=== PATIENT | female | born 1940 | race Caucasian/White ===

== ENCOUNTER 2017-02-04 10:04 | Day surgery (SDC) | payer MEDICARE, BC ==
[~2017-02-04] VITALS: Ht 162.6 cm; Wt 82.1 kg
[2017-02-04] VITALS (7 sets, daily range): BP systolic 114–145; BP diastolic 53–66; PULSE 53–61; RESP 16–25; TEMP 97.4–98; O2SAT 90–93; Ht 162.6 cm; Wt 82.1 kg
[~2017-02-04 10:04] MED LIST: AMLO5TAB66 PO; ASPI-558 PO; CITA-50 PO; MULT1CAP47 PO; ROSU10TA13 PO
--- OUTSIDE RECORDS SUMMARY | 2017-02-04 10:09 | XMS REPORT | Referral Summary ---
Author Author [facility] Organization [facility] Address Unknown Phone Unavailable Care Team Providers Care Flight Inspector Name Role Phone Preethi Dalal Primary Care Physician [phone] Encounter Date(s): 05/13/15 - 05/13/15 [facility] [address] [place] [id number] Discharge Diagnosis: Essential hypertension Discharge Diagnosis: Generalized OA Discharge Diagnosis: Depression Discharge Diagnosis: Coronary arteriosclerosis Discharge Diagnosis: Lower back pain Discharge Diagnosis: Pure hypercholesterolemia Discharge Disposition: 01-Home or Self Care Attending Physician: Jonathan Dalal MD Admitting Physician: Jonathan Dalal MD Vital Signs Most recent to 1 oldest [Reference Range]: Temperature Tympanic 36.2 degC [36.6-38.1 degC] *LOW* (05/13/15 9:54 AM) Peripheral Pulse 64 bpm Rate [60-100 bpm] (05/13/15 9:54 AM) Blood Pressure 176/80 mmHg [90-140/60-90 mmHg] *HI* (05/13/15 9:54 AM) Problem List Condition Effective Dates Status Health Status Informant angina(Confirmed) Resolved Angina(Confirmed) Resolved Blood clots in the Resolved lung(Confirmed) Blood Resolved transfusion(Confirme d) CAD (coronary artery Resolved disease)(Confirmed) Chicken Resolved pox(Confirmed) Cor athrscl-uns Resolved vessel(Confirmed) Coronary Active arteriosclerosis (disorder)(Confirmed ) Depression(Confirmed Resolved ) Depressive Resolved disorder(Confirmed) Essential Active hypertension (disorder)(Confirmed ) Hearing Resolved loss(Confirmed) High Resolved cholesterol(Confirme d) Hypercholesterolemia Resolved (Confirmed) Hypertension(Confirm Resolved ed) Obesity(Confirmed) Active patient Pure Active hypercholesterolemia (disorder)(Confirmed ) Allergies, Adverse Reactions, Alerts Substance Reaction Severity Status acetaminophen Active HYDROcodone Active lisinopril cough Active niacin rash Active Medications amLODIPine 5 mg oral tablet See Instructions, TAKE ONE TABLET BY MOUTH ONCE DAILY, # 90 tabs, 1 Refill(s), eRx: [facility], TAKE ONE TABLET BY MOUTH ONCE DAILY Start Date: 06/21/15 Status: Ordered chromium picolinate 500 mcg, Oral, Daily, 0 Refill(s) Start Date: 08/12/15 Status: Ordered cinnamon mg, Oral, BID, 0 Refill(s) Start Date: 08/12/15 Status: Ordered citalopram 40 mg oral tablet 1 tabs, Oral, Daily, # 90 tabs, 3 Refill(s), Pharmacy: [facility], 1 tabs Oral Daily Start Date: 11/09/14 Status: Ordered Crestor 20 mg oral tablet 1 tabs, Oral, Daily, fax [phone], # 90 tabs, 3 Refill(s) Start Date: 02/14/15 Status: Ordered losartan 100 mg oral tablet See Instructions, TAKE ONE TABLET BY MOUTH ONCE DAILY, # 90 tabs, 1 Refill(s), eRx: [facility], TAKE ONE TABLET BY MOUTH ONCE DAILY Start Date: 07/15/15 Status: Ordered LOSARTAN 100MG TAB See Instructions, TAKE ONE TABLET BY MOUTH EVERY DAY, # 90 tabs, 1 Refill(s), eRx: [facility], TAKE ONE TABLET BY MOUTH EVERY DAY Start Date: 01/10/15 Status: Ordered metoprolol tartrate 100 mg oral tablet 100 mg 1 tabs, Oral, BID, # 60 tabs, 6 Refill(s), Pharmacy: [facility] Start Date: 05/13/15 Status: Ordered multivitamin Daily, 0 Refill(s) Start Date: 07/20/14 Status: Ordered Vitamin D3 2000 intl units oral tablet Intl_Units tabs, Oral, Daily, 0 Refill(s) Start Date: 08/12/15 Status: Ordered Results Urinalysis Most recent to 1 oldest [Reference Range]: UA Color Lt Yellow (05/13/15 10:34 AM) UA Appear Clear (05/13/15 10:34 AM) UA pH [5.0-8.0] 7.0 (05/13/15 10:34 AM) UA Leuk Est Negative [Negative] (05/13/15 10:34 AM) UA Nitrite Negative [Negative] (05/13/15 10:34 AM) UA Protein Negative [Negative] (05/13/15 10:34 AM) UA Glucose Negative [Negative] (05/13/15 10:34 AM) UA Ketones Negative [Negative] (05/13/15 10:34 AM) UA Urobilinogen 0.2 mg/dL (05/13/15 10:34 AM) UA Bili [Negative] Negative (05/13/15 10:34 AM) UA Blood Negative (05/13/15 10:34 AM) UA Spec Grav 1.020 [1.003-1.030] (05/13/15 10:34 AM) Type Clean Catch (05/13/15 10:34 AM) Immunizations Vaccine Date Refusal Reason tetanus/diphth/pertuss (Tdap) adult/adol 11/22/09 influenza virus vaccine, inactivated 08/21/14 pneumococcal 13-valent conjugate vaccine 05/13/15 pneumococcal 23-polyvalent vaccine 11/22/12 Procedures Procedure Date Related Diagnosis Body Site Mammogram 10/10/14 Colonoscopy 05/21/11 Left cartoid Endarterectomy 09/01/10 Right Cartoid Endarterectomy 08/06/08 Mammogram 06/11/04 Cataract extraction; bilateral 11/22/99 Hysterectomy 11/22/97 Tubal ligation 11/22/79 Angioplasty Cardiac Bypass Social History Social History Type Response Smoking Status Former smoker; Type: Cigarettes Assessment and Plan Extracted from: Title: Ambulatory Patient Education Author: Jonathan Dalal MD Date: Family Medicine Hypertension Hypertension is another name for high blood pressure. High blood pressure may mean that your heart needs to work harder to pump blood. Blood pressure consists of two numbers, which includes a higher number over a lower number ( example: 110/72). HOME CARE Make lifestyle changes as told by your doctor. This may include weight loss and exercise. Take your blood pressure medicine every day. Limit how much salt you use. Stop smoking if you smoke. Do not use drugs. Talk to your doctor if you are using decongestants or control pills. These medicines might make blood pressure higher. Females should not drink more than 1 alcoholic drink per day. Males should not drink more than 2 alcoholic drinks per day. See your doctor as told. GET HELP RIGHT AWAY IF: You have a blood pressure reading with a top number of 180 or higher. You get a very bad headache. You get blurred or changing vision. You feel confused. You feel weak, numb, or faint. You get chest or belly (abdominal ) pain. You throw up (vomit ). You cannot breathe very well. MAKE SURE YOU: Understand these instructions. Will watch your condition. Will get help right away if you are not doing well or get worse. Document Released: 04/26/2009 Document Revised: 01/30/2013 Document Reviewed: Exit[employer] Patient Information 2014 [place]. No follow up information was provided. Extracted from: Title: Office Visit Note Author: Jonathan Dalal MD Date: 05/13/15 Assessment/Plan Coronary arteriosclerosis Overall appears stable no change in current treatment. Prevnar was recommended and given today. Ordered: pneumococcal 13-valent conjugate vaccine, 0.5 mL, IntraMuscular, Once, First Dose: 05/13/15 11:00:00 CDT, Stop Date: 05/13/15 11:00:00 CDT, Form: Injection Office Visit Level 4 Est 20932 Depression Stable no change in current treatment recommended. Ordered: Office Visit Level 4 Est 60709 Essential hypertension I'm going to discontinue her metoprolol succinate and begin metoprolol tartrate 100 mg twice a day. Continue other medications without change. Follow-up in 3 months. If her blood pressures at home are running high she'll let us know. She has difficulty getting this covered by insurance she'll let us know. Ordered: pneumococcal 13-valent conjugate vaccine, 0.5 mL, IntraMuscular, Once, First Dose: 05/13/15 11:00:00 CDT, Stop Date: 05/13/15 11:00:00 CDT, Form: Injection Office Visit Level 4 Est 30817 Generalized OA Overall stable may continue Celebrex as tolerated. Ordered: Office Visit Level 4 Est 67039 Lower back pain I think this is likely related to her osteoarthritis. We will check a UA today just to make sure there is no signs of infection or other kidney problems. Ordered: Office Visit Level 4 Est 90199 Urinalysis with Culture if Indicated Pure hypercholesterolemia Overall stable no change in current treatment. Follow-up in 3 months with fasting lab prior to that appointment. Ordered: Office Visit Level 4 Est 73328 Orders: metoprolol, 100 mg 1 tabs, Oral, BID, # 60 tabs, 6 Refill(s), Pharmacy : [facility]
--- OUTSIDE RECORDS SUMMARY | 2017-02-04 10:09 | XMS REPORT | Referral Summary ---
Author Author [facility] Organization [facility] Address Unknown Phone Unavailable Care Team Providers Care Mortician Supplies Sales Representative Name Role Phone Preethi Dalal Primary Care Physician [phone] Encounter [facility] [id number] Date(s): 10/09/15 - 10/09/15 [facility] [address] [place] [address] [place] [id number] Discharge Diagnosis: Hypercholesteremia Discharge Diagnosis: H/O coronary artery bypass surgery Discharge Diagnosis: Coronary heart disease Discharge Diagnosis: Essential hypertension Discharge Diagnosis: Hypertensive heart disease Discharge Diagnosis: Weakness Discharge Disposition: 01-Home or Self Care Attending Physician: Kd Dennison MD Admitting Physician: Kd Dennison MD Referring Physician: Jonathan Dalal MD Vital Signs Most recent to 1 oldest [Reference Range]: Peripheral Pulse 56 bpm Rate [60-100 bpm] *LOW* (10/09/15 11:22 AM) Blood Pressure 130/78 mmHg [90-140/60-90 mmHg] (10/09/15 11:22 AM) Problem List Condition Effective Dates Status [...] DAILY, # 90 tabs, 1 Refill(s), eRx: [facility], TAKE ONE TABLET BY MOUTH ONCE DAILY Start Date: 06/21/15 Status: Ordered aspirin 81 mg oral tablet 81 mg 1 tabs, Oral, Daily, 0 Refill(s) Start Date: 10/09/15 Status: Ordered citalopram 40 mg oral tablet 1 tabs, Oral, Daily, # 90 tabs, 3 Refill(s), Pharmacy: [facility], 1 tabs Oral Daily Start Date: 11/09/14 Status: Ordered Crestor 20 mg oral tablet 1 tabs, Oral, Daily, fax [phone], # 90 tabs, 3 Refill(s) Start Date: 02/14/15 Status: Ordered losartan 100 mg oral tablet See Instructions, TAKE ONE TABLET BY MOUTH ONCE DAILY, # 90 tabs, 1 Refill(s), eRx: [facility], TAKE ONE TABLET BY MOUTH ONCE DAILY Start Date: 07/15/15 Status: Ordered metoprolol tartrate 100 mg oral tablet 100 mg 1 tabs, Oral, BID, # 60 tabs, 6 Refill(s), Pharmacy: [facility] Start Date: 05/13/15 Status: Ordered multivitamin Daily, 0 Refill(s) Start Date: 07/20/14 Status: Ordered Vitamin D3 2000 intl units oral tablet Intl_Units tabs, Oral, Daily, 0 Refill(s) Start Date: 08/12/15 Status: Ordered Results No data available for this section Immunizations Vaccine Date Refusal Reason tetanus/diphth/pertuss (Tdap) [...] Cigarettes Assessment and Plan Extracted from: Title: Office Visit Note Author: Kd Dennison MD Date: 10/09/15 Assessment/Plan 1.Coronary heart disease Ordered: CBC w/ Differential Comprehensive Metabolic Panel Internal Referral to Neurology Lipid Panel 2.Essential hypertension Ordered: CBC w/ Differential Comprehensive Metabolic Panel Internal Referral to Neurology Lipid Panel 3.Hypertensive heart disease Ordered: CBC w/ Differential Comprehensive Metabolic Panel Internal Referral to Neurology Lipid Panel 4.Hypercholesteremia Ordered: CBC w/ Differential Comprehensive Metabolic Panel Internal Referral to Neurology Lipid Panel 5.Weakness Ordered: Creatine Kinase Internal Referral to Neurology Sedimentation Rate US Carotid Duplex Bilateral 6.H/O coronary artery bypass surgery Discussion: Clearly this lady is quite complex and has an extensive positive review of systems. In view of her falls and neurologic symptoms, we will refer to neurologyand we will orderacarotid ultrasound. In view of her symptoms of weakness andcholesterol medicine, we will order a CPK level. In view of her headaches, we will order a sedimentation rate. Overall,this lady is highly symptomaticand has marked limitationbut probably is about the same as she was a year ago. Time of visit about a half hour. Ordered: Internal Referral to Neurology Referrals to Other Providers falls; balance Referred by: Kd Dennison MD
--- OUTSIDE RECORDS SUMMARY | 2017-02-04 10:09 | XMS REPORT | Continuity of Care Document ---
Author Author [facility] Address [address] [place] [address] Phone Care Team Providers Care Sheet Pile Hammer Operator Name Role Phone Jonathan Dalal PP Unavailable Payers Payer name Insurance type Covered democrat ID Authorization(s) Unknown Problems Condition Effective Dates (start - stop) Clinical Status CAD, Unspecified - *Chronic Hypertension, Unspecified - *Chronic Hypercholesterolemia - *Chronic Depression - *Chronic CAD, Unspecified - Chronic Hypertension, Unspecified - Chronic Hypercholesterolemia - Chronic Depression - Chronic Contact dermatitis and other eczema, unspecified cause - * Chronic Upper Respiratory Infection, Acute - *Acute CAD, Unspecified - *Chronic Hypertension, Unspecified - *Chronic Hypercholesterolemia - *Chronic Depression - *Chronic Fatigue / Malaise - *Chronic Myalgia - *Chronic Dyspnea - *Chronic Cervicalgia - *Acute Cough - *Acute CAD, Unspecified - *Chronic Hypertension, Unspecified - *Chronic Hypercholesterolemia - *Chronic Depression - *Chronic CAD, Unspecified - Chronic Hypertension, Unspecified - Chronic Hypercholesterolemia - Chronic Depression - Chronic Contusion of head - *Acute Concussion - *Acute CAD, Unspecified - *Chronic Hypertension, Unspecified - *Chronic CAD, Unspecified - Chronic Hypertension, Unspecified - Chronic Bronchitis, Acute - *Acute CAD, Unspecified - *Chronic Hypercholesterolemia - *Chronic Depression - *Chronic Hypertension, Unspecified - *Chronic CAD, Unspecified - Chronic Hypercholesterolemia - Chronic Depression - Chronic Hypertension, Unspecified - Chronic Fatigue / Malaise - *Chronic CAD, Unspecified - *Chronic Hypertension, Unspecified - *Chronic Hypercholesterolemia - *Chronic Depression - *Chronic CAD, Unspecified - Chronic Hypertension, Unspecified - Chronic Hypercholesterolemia - Chronic Depression - Chronic Carotid bruit - *Chronic Malaise and fatigue - *Chronic CAD, Unspecified - *Chronic Hypercholesterolemia - *Chronic Hypertension, Unspecified - *Chronic BLOOD TRANSFUSION, NO DX - VARICELLA UNCOMPLICATED - PURE HYPERCHOLESTEROLEM - 311 - DEPRESSIVE DISORDER NEC - HEARING LOSS NOS - HYPERTENSION NOS - ANGINA PECTORIS NEC/NOS - COR ATH UNSP VSL NTV/GFT - PULM EMBOL/INFARCT NEC - VOCAL PARAL UNILAT TOTAL - Bronchitis, Acute - *Acute CAD, Unspecified - *Chronic Hypertension, Unspecified - *Chronic Hypercholesterolemia - *Chronic Depression - *Chronic Family History Family Member Diagnosis Age At Onset Status Unknown Social History Social History Element Description Quantity Unknown Allergies, Adverse Reactions, Alerts Substance Reaction Severity Status ATORVASTATIN CALCIUM muscle aches Unknown NIACIN rash Unknown ACETAMINOPHEN Unknown HYDROCODONE BITARTRATE Unknown LISINOPRIL cough Unknown Medications Medication Instructions Dosage Effective Dates (start - stop) Status triamcinolone acetonide 0.1 % topical cream apply by topical route 2 times every day a thin layer to the affected area(s) 0 - Active Aspirin Low Dose 81 mg tablet,delayed release take 1 tablet (81MG) by oral route every day 81 MG - Active Multiple Vitamins Daily tablet take 1 Tablet by Oral route every day 0 - Active Norvasc 5 mg tablet Take 1 tablet by mouth every day. - Active citalopram 20 mg tablet Take 1 by mouth every day. - Active losartan 100 mg tablet Take 1 by mouth every day. - Active omega 6-bbd-udz-fish oil 1,000 mg (120 mg-180 mg) capsule take 1 Capsule by Oral route every day 0 - Active Crestor 20 mg tablet take one tablet every other day - Active Immunizations Vaccine Date Status Comments Unknown Results Test Name Date and Time Measure Units Reference Range Abnormal Flag Comments Panel Description: Chemistry Profile Glucose 11:04:00 100 mg/dL 70-99 H BUN 11:04:00 22 mg/dL 10-20 H Creatinine 11:04:00 0.93 mg/dL 0.57-1.11 Calcium 11:04:00 9.8 mg/dL 8.9-10.5 Sodium 11:04:00 141 mEq/L 135-144 Potassium 11:04:00 4.2 mEq/L 3.5-5.2 Chloride 11:04:00 102 mEq/L 99-111 CO2 11:04:00 30 mEq/L 22-31 Albumin 11:04:00 4.4 g/dL 3.4-4.8 Bilirubin Total 11:04:00 0.8 mg/dL 0.2-1.2 Alkaline Phosphatase 11:04:00 66 U/L 40-150 Protein 11:04:00 7.4 g/dL 6.2-8.1 ALT (SGPT) 11:04:00 17 U/L 0-55 AST (SGOT) 11:04:00 18 U/L 5-34 Anion Gap 11:04:00 9 3-20 Globulin 11:04:00 3.0 g/dL 1.8-4.0 Testing performed at [facility] Reference Lab [facility] [address] [place] [address] Reference Librarian Mathew Tomlinson MD Panel Description: Lipid Profile-[facility] Cholesterol 11:04:00 319 mg/dL 0-199 H Triglycerides 11:04:00 174 mg/dL 0-149 H HDL Cholesterol 11:04:00 52 mg/dL 40-84 LDL Cholesterol 11:04:00 232 mg/dL 0-130 H VLDL Cholesterol 11:04:00 35 mg/dL 0-28 H Cardiac Risk 11:04:00 6.1 0.0-5.0 H Testing performed at [facility] Reference Lab [facility] [address] [place] [address] Reference Librarian Mathew Tomlinson MD Panel Description: Non-HDL Cholesterol-[facility] Non-HDL Cholesterol 11:04:00 267 mg/dL 0-159 H Testing performed at [facility] Reference Lab [address] [place] [address] Reference Librarian Mathew Tomlinson MD Panel Description: EGFR-[facility] eGFR 11:04:00 59 mL/min >60 A Multiply eGFR results by 1.21 for race.Testing performed at [facility] Reference Lab [address] [place] [address] Reference Librarian Mathew Tomlinson MD Vital Signs Date / Time: Height Weight Pulse Rate Blood Pressure Temperature /10:14:00 64.00 in 181.00 lbs 80 /min 138/84 mm[Hg] 96.9 F Procedures Procedure Date Unknown Encounters Encounter Location Date Patient Visit [facility] Patient Visit [facility] Patient Visit [facility] Patient Visit [facility] Patient Visit [facility] Patient Visit [facility] Patient Visit [facility] Patient Visit [facility] Patient [facility] Patient [facility] Patient Visit [facility] Patient Visit [facility] [place] Patient Visit [facility] Patient Visit [facility] Advance Directives Directive Effective Date Unknown
--- OUTSIDE RECORDS SUMMARY | 2017-02-04 10:10 | XMS REPORT | Summary of Care ---
Author Author Titi Nair, Festus Organization Unknown Address Unknown Phone Unavailable Care Team Providers Care Contribution Solicitor Name Role Phone Olya Campos DPM Unavailable Unavailable Festus Walls M.D. Unavailable Unavailable Jonathan Dalal Unavailable Unavailable Unavailable Unavailable Functional Status Name Dates Details Functional status health issues are not documented Status: Name Dates Details Cognitive status health issues are not documented Status: Problems Name Dates Details Foot pain (729.5, M79.673) Status: Active Allergic rhinitis (477.9, J30.9) Status: Active Post-nasal drip (784.91, R09.82) Status: Active Medications Name Dates Details Crestor 20 MG Oral Tablet TAKE 1 TABLET DAILY. Olya Campos DPM * Start Active Triamcinolone Acetonide 0.1 % External Ointment APPLY AND GENTLY MASSAGE INTO AFFECTED AREA(S) TWICE DAILY. * Quantity: 80 Refills: 0 Olya Campos DPM * Start Active Aspirin Adult Low Strength 81 MG Oral Tablet Chewable * Refills: 0 * Start 15-Sep-2016 Active AmLODIPine Besylate TABS * Refills: 0 * Start 15-Sep-2016 Active Fluticasone Propionate 50 MCG/ACT Nasal Suspension USE 2 SPRAYS IN EACH NOSTRIL ONCE DAILY * Quantity: 1 Refills: 3 Festus Walls M.D. * Start 15-Sep-2016 Active Allergies and Adverse Reactions Name Dates Details Lipitor (Allergy) Status: Active niacin (Allergy) Status: Active Procedures Procedure Dates Details Procedures not documented Immunization Name Dates Details Immunizations not documented Family History Name Dates Details Family history of hypertension (V17.49, Z82.49) Status: Active Family history of High cholesterol (272.0, E78.00) Status: Active Name Dates Details Family history of hypertension (V17.49, Z82.49) Status: Active Family history of cardiac disorder (V17.49, Z82.49) Status: Active Social History Name Dates Details - Status: Name Dates Details Former smoker Vital Signs Date Test Result Details 15-Sep-2016 13:16 Temperature 97.5 f Status: Comments: Method: Heart Rate 58 /min Status: Comments: Location: ; Physical Findings 21 Status: Comments: Respiration Height 65 in Status: Weight 168 lb Status: Physical Findings 92 Status: Comments: O2 Saturation Body Mass Index Calculated 27.96 kg/m2 Status: Body Surface Area Calculated 1.84 m2 Status: Results Date Description Value Details Results not documented Plan of Care Name Dates Details Planned Observations Planned Goals not documented Planned Encounters Appointment; Provider: Festus Walls M.D. On 17-Dec-2016 10:45 Interventions Provided Medication Changes* Fluticasone Propionate 50 MCG/ACT Nasal Suspension - Start Instructions Name Dates Details Instructions not documented Encounters Appointment; Festus Walls M.D. Encounter Diagnosis: Problem not documented On 08-Sep-2016 12:30
--- OUTSIDE RECORDS SUMMARY | 2017-02-04 10:10 | XMS REPORT | Referral Summary ---
Author Author [facility], [facility] Organization [facility] Address Unknown Phone Unavailable Care Team Providers Care Search Strategist Name Role Phone Preethi Dalal Primary Care Physician [phone] Encounter [facility] Date(s): 08/21/16 - 08/21/16 [facility] [address] [place] [address] Discharge Diagnosis: Coronary arteriosclerosis Discharge Diagnosis: Essential hypertension Discharge Diagnosis: Mixed hyperlipidemia Discharge Diagnosis: Hyperlipidemia Discharge Diagnosis: Hoarseness Discharge Disposition: 01-Home or Self Care Attending Physician: Jonathan Dalal MD Admitting Physician: Jonathan Dalal MD Vital Signs Most recent to 1 oldest [Reference Range]: Temperature Tympanic 36.2 degC [36.6-38.1 degC] *LOW* (08/21/16 8:56 AM) Peripheral Pulse 56 bpm Rate [60-100 bpm] *LOW* (08/21/16 8:56 AM) Respiratory Rate 16 br/min [14-20 br/min] (08/21/16 8:56 AM) Blood Pressure 152/74 mmHg [90-140/60-90 mmHg] *HI* (08/21/16 8:56 AM) Problem List Condition Effective Dates Status [...] Reaction Severity Status acetaminophen Active HYDROcodone Active Levaquin Swallowing difficulty Active 16-JUN-2016 16:37:42<$> lisinopril cough Active niacin rash Active Medications amLODIPine 5 mg oral tablet See Instructions, TAKE ONE TABLET BY MOUTH ONCE DAILY, # 90 tabs, 1 Refill(s), Pharmacy: [facility], TAKE ONE TABLET BY MOUTH ONCE DAILY Start Date: 12/30/15 Status: Ordered aspirin 81 mg oral tablet 81 mg 1 tabs, Oral, Daily, 0 Refill(s) Start Date: 10/09/15 Status: Ordered CITALOPRAM 40MG TAB See Instructions, TAKE ONE TABLET BY MOUTH ONCE DAILY, # 90 tabs, 1 Refill(s), eRx: [facility], TAKE ONE TABLET BY MOUTH ONCE DAILY Start Date: 05/11/16 Status: Ordered Crestor 20 mg oral tablet 20 mg 1 tabs, Oral, Daily, fax [phone], # 90 tabs, 2 Refill(s) Start Date: 02/24/16 Status: Ordered losartan 100 mg oral tablet See Instructions, TAKE ONE TABLET BY MOUTH ONCE DAILY, # 90 tabs, 2 Refill(s), eRx: [facility], TAKE ONE TABLET BY MOUTH ONCE DAILY Start Date: 07/03/16 Status: Ordered Metoprolol Tartrate 100 mg oral tablet See Instructions, TAKE ONE TABLET BY MOUTH TWICE DAILY, # 180 tabs, eRx: [facility], TAKE ONE TABLET BY MOUTH TWICE DAILY Start Date: 07/28/16 Status: Ordered multivitamin Daily, 0 Refill(s) Start Date: 07/20/14 Status: Ordered Probiotic Formula caps, Oral, Daily, 0 Refill(s) Start Date: 11/11/15 Status: Ordered Vitamin D3 2000 intl units oral tablet Intl_Units tabs, Oral, Daily, 0 Refill(s) Start Date: 08/12/15 Status: Ordered Results No data available for this section Immunizations Vaccine Date Refusal Reason tetanus/diphth/pertuss (Tdap) adult/adol 11/22/09 influenza virus vaccine, inactivated 08/21/16 influenza virus vaccine, inactivated 11/11/15 influenza virus vaccine, inactivated 08/21/14 pneumococcal 13-valent conjugate vaccine 6/22/15 pneumococcal 23-polyvalent vaccine 11/22/12 Procedures Procedure Date Related Diagnosis Body Site Mammogram 10/10/14 Colonoscopy 05/21/11 Left cartoid Endarterectomy 09/01/10 Right Cartoid Endarterectomy 08/06/08 Mammogram 06/11/04 Cataract extraction; bilateral 11/22/99 Hysterectomy 11/22/97 Tubal ligation 11/22/79 Angioplasty Cardiac Bypass Social History Social History Type Response Smoking Status Former smoker; Type: Cigarettes Assessment and Plan Extracted from: Title: Office Visit Note Author: Jonathan Dalal MD Date: 08/21/16 Assessment/Plan 1.Coronary arteriosclerosis Chronic stable no change in current treatment is recommended no signs of ischemia or angina. Follow-up in 3 months. Ordered: Office Visit Level 4 Est 99479 2.Essential hypertension Blood pressures well-controlled no change in current treatment is recommended. Previous laboratory studies reviewed. Follow-up in 3 monthswith fasting lab at that time. Ordered: Office Visit Level 4 Est 58773 3.Hyperlipidemia, Mixed hyperlipidemia She is due for fasting lab in 3 months we'll see what that shows continuedcurrent treatment without change for the time being. Ordered: Office Visit Level 4 Est 09222 4.Hoarseness I've recommended anENT consult for further evaluation Ordered: Office Visit Level 4 Est 48842
--- OUTSIDE RECORDS SUMMARY | 2017-02-04 10:10 | XMS REPORT | Referral Summary ---
Author Author [facility] Organization [facility] Address Unknown Phone Unavailable Care Team Providers Care Kindergarten Aide Name Role Phone Preethi Dalal Primary Care Physician [phone] Encounter [facility] [id number] Date(s): 02/20/16 - 02/20/16 [facility] [address] [place], [place] [address] Discharge Diagnosis: Chest pain Discharge Diagnosis: CAD (coronary artery disease) Discharge Diagnosis: Shoulder pain Discharge Diagnosis: Witnessed apneic spells Discharge Diagnosis: Essential hypertension Discharge Diagnosis: Snores Discharge Disposition: 01-Home or Self Care Attending Physician: Yvon King Admitting Physician: Yvon King Referring Physician: Jonathan Dalal MD Vital Signs Most recent to 1 oldest [Reference Range]: Peripheral Pulse 60 bpm Rate [60-100 bpm] (02/20/16 10:35 AM) Blood Pressure 136/80 mmHg [90-140/60-90 mmHg] (02/20/16 10:35 AM) Problem List Condition Effective Dates Status [...] DAILY, # 90 tabs, 1 Refill(s), Pharmacy: [facility], TAKE ONE TABLET BY MOUTH ONCE DAILY Start Date: 12/30/15 Status: Ordered aspirin 81 mg oral tablet 81 mg 1 tabs, Oral, Daily, 0 Refill(s) Start Date: 10/09/15 Status: Ordered CITALOPRAM 40MG TAB See Instructions, TAKE ONE TABLET BY MOUTH ONCE DAILY, # 90 tabs, 1 Refill(s), eRx: [facility], TAKE ONE TABLET BY MOUTH ONCE DAILY Start Date: 11/11/15 Status: Ordered Crestor 20 mg oral tablet 1 tabs, Oral, Daily, fax [phone], # 90 tabs, 3 Refill(s) Start Date: 02/14/15 Status: Ordered hydrALAZINE 25 mg oral tablet 25 mg 1 tabs, Oral, BID, # 60 tabs, 6 Refill(s), Pharmacy: [facility] , 1 tabs Oral BID Start Date: 02/20/16 Status: Ordered losartan 100 mg oral tablet See Instructions, TAKE ONE TABLET BY MOUTH ONCE DAILY, # 90 tabs, 1 Refill(s), eRx: [facility], TAKE ONE TABLET BY MOUTH ONCE DAILY Start Date: 02/03/16 Status: Ordered metoprolol tartrate 100 mg oral tablet 100 mg 1 tabs, Oral, BID, # 180 tabs, 1 Refill(s), Pharmacy: [facility] Start Date: 01/06/16 Stop Date: 07/04/16 Status: Ordered multivitamin Daily, 0 Refill(s) Start Date: 07/20/14 Status: Ordered Probiotic Formula caps, Oral, Daily, 0 Refill(s) Start Date: 11/11/15 Status: Ordered Vitamin D3 2000 intl units oral tablet Intl_Units tabs, Oral, Daily, 0 Refill(s) Start Date: 08/12/15 Status: Ordered Results Hematology Most recent to 1 oldest [Reference Range]: Sed Rate [0-23] 18 (02/20/16 12:05 PM) Immunizations Vaccine Date Refusal Reason tetanus/diphth/pertuss (Tdap) adult/adol 11/22/09 influenza virus vaccine, inactivated 11/11/15 influenza virus [...] Extracted from: Title: Office Visit Note Author: KingYvon cotto Willy LORA Date: 02/20/16 Assessment/Plan 1.Chest pain Pt was seen by Dr. Dennison today as well. EKG was also rev'd by Dr. Dennison. Advised it was unremarkable. Advised that pt has had sx of chest pains off and on for years. However, we should repeat stress test in near future to re-evaluate her vessels. See Praful Dennison as previously scheduled. Ordered: Office Visit Level 4 Est 81995 Request for Cardiovascular Stress Test Sedimentation Rate 2.CAD (coronary artery disease) Ordered: Office Visit Level 4 Est 13199 Request for Cardiovascular Stress Test 3.Essential hypertension Add Hydralazine 25mg BID to regimen. Ordered: Office Visit Level 4 Est 86200 4.Shoulder pain Check ESR Ordered: Office Visit Level 4 Est 48114 Sedimentation Rate 5.Snores Ordered: Office Visit Level 4 Est 40954 Oximetry - Nocturnal Study 6.Witnessed apneic spells overnight oxiemtry. Ordered: Oximetry - Nocturnal Study Orders: hydrALAZINE, 25 mg 1 tabs, Oral, BID, # 60 tabs, 6 Refill(s), Pharmacy : [facility], 1 tabs Oral BID
--- OUTSIDE RECORDS SUMMARY | 2017-02-04 10:10 | XMS REPORT | Referral Summary ---
Author Author [facility] Organization [facility] Address Unknown Phone Unavailable Care Team Providers Care Starter Mechanic Name Role Phone Preethi Dalal Primary Care Physician [phone] Encounter Date(s): 05/13/15 - 05/13/15 [facility] [address] [place] [id number] Discharge Diagnosis: Essential hypertension Discharge Diagnosis: [...] DAILY, # 90 tabs, 1 Refill(s), eRx: [facility], TAKE ONE TABLET BY MOUTH ONCE DAILY Start Date: 06/21/15 Status: Ordered chromium picolinate 500 mcg, Oral, Daily, 0 Refill(s) Start Date: 08/12/15 Status: Ordered cinnamon mg, Oral, BID, 0 Refill(s) Start Date: 08/12/15 Status: Ordered citalopram 40 mg oral tablet 1 tabs, Oral, Daily, # 90 tabs, 3 Refill(s), Pharmacy: [facility], 1 tabs Oral Daily Start Date: 11/09/14 Status: Ordered Crestor 20 mg oral tablet 1 tabs, Oral, Daily, fax [phone], # 90 tabs, 3 Refill(s) Start Date: 02/14/15 Status: Ordered losartan 100 mg oral tablet See Instructions, TAKE ONE TABLET BY MOUTH ONCE DAILY, # 90 tabs, 1 Refill(s), eRx: [facility], TAKE ONE TABLET BY MOUTH ONCE DAILY Start Date: 07/15/15 Status: Ordered LOSARTAN 100MG TAB See Instructions, TAKE ONE TABLET BY MOUTH EVERY DAY, # 90 tabs, 1 Refill(s), eRx: [facility], TAKE ONE TABLET BY MOUTH EVERY DAY Start Date: 01/10/15 Status: Ordered metoprolol tartrate 100 mg oral tablet 100 mg 1 tabs, Oral, BID, # 60 tabs, 6 Refill(s), Pharmacy: [facility] Start Date: 05/13/15 Status: Ordered multivitamin [...] 01/30/2013 Document Reviewed: [employer] Patient Information 2014 [employer]. No follow up information was provided. Extracted from: Title: Office Visit Note Author: Jonathan Dalal MD Date: 05/13/15 Assessment/Plan Coronary arteriosclerosis Overall appears stable no change in current treatment. Prevnar was recommended and given today. Ordered: pneumococcal 13-valent conjugate vaccine, 0.5 mL, IntraMuscular, Once, First Dose: 05/13/15 11:00:00 CDT, Stop Date: 05/13/15 11:00:00 CDT, Form: Injection Office Visit Level 4 Est 30550 Depression Stable no change in current treatment recommended. Ordered: Office Visit Level 4 Est 82767 Essential hypertension I'm going to discontinue her [...] Form: Injection Office Visit Level 4 Est 78526 Generalized OA Overall stable may continue Celebrex as tolerated. Ordered: Office Visit Level 4 Est 75842 Lower back pain I think this is likely related to her osteoarthritis. We will check a UA today just to make sure there is no signs of infection or other kidney problems. Ordered: Office Visit Level 4 Est 68999 Urinalysis with Culture if Indicated Pure hypercholesterolemia Overall stable no change in current treatment. Follow-up in 3 months with fasting lab prior to that appointment. Ordered: Office Visit Level 4 Est 79368 Orders: metoprolol, 100 mg 1 tabs, Oral, BID, # 60 tabs, 6 Refill(s), Pharmacy : [facility]
--- OUTSIDE RECORDS SUMMARY | 2017-02-04 10:10 | XMS REPORT | Referral Summary ---
Author Author [facility], [facility] Organization [facility] Address Unknown Phone Unavailable Care Team Providers Care Voice Coach Name Role Phone Preethi Dalal Primary Care Physician [phone] Encounter [facility] Date(s): 11/12/16 - 11/12/16 [facility] [address] [place] [address] Discharge Diagnosis: Essential hypertension Discharge Diagnosis: Polyosteoarthritis Discharge Diagnosis: Coronary arteriosclerosis Discharge Diagnosis: Pure hypercholesterolemia Discharge Diagnosis: Depression Discharge Disposition: 01-Home or Self Care Attending Physician: Jonathan Dalal MD Admitting Physician: Jonathan Dalal MD Vital Signs Most recent to 1 oldest [Reference Range]: Temperature Tympanic 36.5 degC [36.6-38.1 degC] *LOW* (11/12/16 8:23 AM) Peripheral Pulse 64 bpm Rate [60-100 bpm] (11/12/16 8:23 AM) Respiratory Rate 16 br/min [14-20 br/min] (11/12/16 8:23 AM) Blood Pressure 122/66 mmHg [90-140/60-90 mmHg] (11/12/16 8:23 AM) Problem List Condition Effective Dates Status Health Status Informant angina(Confirmed) Resolved Angina(Confirmed) Resolved Blood clots in the Resolved lung(Confirmed) Blood Resolved transfusion(Confirme d) CAD (coronary artery Resolved disease)(Confirmed) Chicken Resolved pox(Confirmed) Cor athrscl-uns Resolved vessel(Confirmed) Coronary Active arteriosclerosis (disorder)(Confirmed ) Depressive Resolved disorder(Confirmed) Essential Active hypertension (disorder)(Confirmed ) Hearing Resolved loss(Confirmed) High Resolved cholesterol(Confirme d) Hypercholesterolemia Resolved (Confirmed) Hypertension(Confirm Resolved ed) Obesity(Confirmed) Active patient Pure Active hypercholesterolemia (disorder)(Confirmed ) Depression(Confirmed Resolved ) Allergies, Adverse Reactions, Alerts Substance Reaction Severity Status acetaminophen Active HYDROcodone Active Levaquin Swallowing difficulty..... Active lisinopril cough Active niacin rash Active Medications amLODIPine 5 mg oral tablet See Instructions, TAKE ONE TABLET BY MOUTH ONCE DAILY, # 90 tabs, 1 Refill(s), eRx: [facility], TAKE ONE TABLET BY MOUTH ONCE DAILY Start Date: 09/18/16 Status: Ordered aspirin 81 mg oral tablet 81 mg 1 tabs, Oral, Daily, 0 Refill(s) Start Date: 10/09/15 Status: Ordered chlorthalidone 25 mg oral tablet 25 mg 1 tabs, Oral, Every other day, # 90 tabs, 5 Refill(s), Pharmacy: [place] [address], 1 tabs Oral Every other day Start Date: 10/14/16 Status: Ordered CITALOPRAM 40MG TAB See Instructions, TAKE ONE TABLET BY MOUTH ONCE DAILY, # 90 tabs, 1 Refill(s), eRx: [facility], TAKE ONE TABLET BY MOUTH ONCE DAILY Start Date: 05/11/16 Status: Ordered CITALOPRAM 40MG TAB See Instructions, TAKE ONE TABLET BY MOUTH ONCE DAILY, # 90 tabs, 1 Refill(s), eRx: [facility], TAKE ONE TABLET BY MOUTH ONCE DAILY Start Date: 11/03/16 Status: Ordered Crestor 20 mg oral tablet 20 mg 1 tabs, Oral, Daily, fax [phone], # 90 tabs, 2 Refill(s) Start Date: 02/24/16 Status: Ordered losartan 100 mg oral tablet See Instructions, TAKE ONE TABLET BY MOUTH ONCE DAILY, # 90 tabs, 2 Refill(s), eRx: [facility], TAKE ONE TABLET BY MOUTH ONCE DAILY Start Date: 07/03/16 Status: Ordered Metoprolol Tartrate 100 mg oral tablet See Instructions, TAKE ONE TABLET BY MOUTH TWICE DAILY, # 180 tabs, eRx: [facility], TAKE ONE TABLET BY MOUTH TWICE DAILY Start Date: 10/27/16 Status: Ordered multivitamin Daily, 0 Refill(s) Start Date: 07/20/14 Status: Ordered Probiotic Formula caps, Oral, Daily, 0 Refill(s) Start Date: 11/11/15 Status: Ordered Vitamin D3 2000 intl units oral tablet Intl_Units tabs, Oral, Daily, 0 Refill(s) Start Date: 08/12/15 Status: Ordered Results No data available for this section Immunizations Given and Recorded Vaccine Date Status Refusal Reason tetanus/diphth/pertuss (Tdap) adult/adol 11/22/09 Recorded influenza virus vaccine, inactivated 08/21/16 Given influenza virus vaccine, inactivated 11/11/15 Given influenza virus vaccine, inactivated 08/21/14 Recorded pneumococcal 13-valent conjugate vaccine 05/13/15 Given pneumococcal 23-polyvalent vaccine 11/22/12 Recorded Procedures Procedure Date Related Diagnosis Body Site Mammogram 10/10/14 Colonoscopy 05/21/11 Left cartoid Endarterectomy 09/01/10 Right Cartoid Endarterectomy 08/06/08 Mammogram 06/11/04 Cataract extraction; bilateral 11/22/99 Hysterectomy 11/22/97 Tubal ligation 11/22/79 Angioplasty Cardiac Bypass Social History Social History Type Response Smoking Status Former smoker; Type: Cigarettes Assessment and Plan Extracted from: Title: Office Visit Note Author: Jonathan Dalal MD Date: 11/12/16 Assessment/Plan 1.Coronary arteriosclerosis Chronic stable no signs of ischemia. No change in current treatment is recommended. Recheck in 3 months. Ordered: Office Visit Level 4 Est 66890 2.Essential hypertension Blood pressure appears to be well controlled. Current medications reviewed no changes are recommended. Recent laboratory studies reviewed and report card reviewed and provided. Follow-up in 3 months. Ordered: Office Visit Level 4 Est 18767 3.Pure hypercholesterolemia Recent laboratory studies reviewed in overall good. No change in current treatment is recommended. Ordered: Office Visit Level 4 Est 33218 4.Depression Chronic and stable on current treatment no changes recommended. Ordered: Office Visit Level 4 Est 26158 5.Polyosteoarthritis Chronic persistent but stable no change in current treatment recommended. Ordered: Office Visit Level 4 Est 14718 Vaccinations are up-to-date.
--- OUTSIDE RECORDS SUMMARY | 2017-02-04 10:10 | XMS REPORT | Referral Summary ---
Author Author [facility] Organization [facility] Address Unknown Phone Unavailable Care Team Providers Care Scratch Finisher Name Role Phone Preethi Dalal Primary Care Physician [phone] Encounter Date(s): 05/13/15 - 05/13/15 [facility] [address] [place] [address] Discharge Diagnosis: Essential hypertension Discharge [...] DAILY, # 90 tabs, 1 Refill(s), eRx: [facility], TAKE ONE TABLET BY MOUTH ONCE DAILY Start Date: 06/21/15 Status: Ordered aspirin 81 mg oral tablet 81 mg 1 tabs, Oral, Daily, 0 Refill(s) Start Date: 10/09/15 Status: Ordered CITALOPRAM 40MG TAB See Instructions, TAKE ONE TABLET BY MOUTH ONCE DAILY, # 90 tabs, 1 Refill(s), eRx: [facility], TAKE ONE TABLET BY MOUTH ONCE DAILY Start Date: 11/11/15 Status: Ordered Crestor 20 mg oral tablet 1 tabs, Oral, Daily, fax [phone], # 90 tabs, 3 Refill(s) Start Date: 02/14/15 Status: Ordered losartan 100 mg oral tablet See Instructions, TAKE ONE TABLET BY MOUTH ONCE DAILY, # 90 tabs, 1 Refill(s), eRx: [facility], TAKE ONE TABLET BY MOUTH ONCE DAILY Start Date: 07/15/15 Status: Ordered metoprolol tartrate 100 mg oral tablet 100 mg 1 tabs, Oral, BID, # 60 tabs, 6 Refill(s), Pharmacy: [facility] Start Date: 05/13/15 Status: Ordered multivitamin Daily, 0 Refill(s) Start Date: 07/20/14 Status: Ordered Probiotic Formula caps, Oral, Daily, 0 Refill(s) Start Date: 11/11/15 Status: Ordered VESIcare 5 mg oral tablet 5 mg 1 tabs, Oral, Daily, # 30 tabs, 0 Refill(s), samples given to patient (Rx) Start Date: 11/11/15 Status: Ordered Vitamin D3 [...] Released: 04/26/2009 Document Revised: 01/30/2013 Document Reviewed: [facility] Patient Information 2014 [employer]. No follow up information was provided. Extracted from: Title: Office Visit Note Author: Jonathan Dalal MD Date: 05/13/15 Assessment/Plan Coronary arteriosclerosis Overall appears stable no change in current treatment. Prevnar was recommended and given today. Ordered: pneumococcal 13-valent conjugate vaccine, 0.5 mL, IntraMuscular, Once, First Dose: 05/13/15 11:00:00 CDT, Stop Date: 05/13/15 11:00:00 CDT, Form: Injection Office Visit Level 4 Est 06393 Depression Stable no change in current treatment recommended. Ordered: Office Visit Level 4 Est 96678 Essential hypertension I'm going to discontinue her [...] Form: Injection Office Visit Level 4 Est 59803 Generalized OA Overall stable may continue Celebrex as tolerated. Ordered: Office Visit Level 4 Est 99650 Lower back pain I think this is likely related to her osteoarthritis. We will check a UA today just to make sure there is no signs of infection or other kidney problems. Ordered: Office Visit Level 4 Est 09883 Urinalysis with Culture if Indicated Pure hypercholesterolemia Overall stable no change in current treatment. Follow-up in 3 months with fasting lab prior to that appointment. Ordered: Office Visit Level 4 Est 89639 Orders: metoprolol, 100 mg 1 tabs, Oral, BID, # 60 tabs, 6 Refill(s), Pharmacy : [facility]
--- OUTSIDE RECORDS SUMMARY | 2017-02-04 10:10 | XMS REPORT | Referral Summary ---
Author Author [facility] Organization [facility] Address Unknown Phone Unavailable Care Team Providers Care Cloth Feeder Name Role Phone Preethi Dalal Primary Care Physician [phone] Encounter VC Date(s): 03/05/16 - 03/05/16 [facility] [address] [place] [address] Discharge Diagnosis: Essential hypertension Discharge Diagnosis: Acute bronchitis Discharge Diagnosis: Left otitis media Discharge Diagnosis: Coronary arteriosclerosis Discharge Disposition: 01-Home or Self Care Attending Physician: Jonathan Dalal MD Admitting Physician: Jonathan Dalal MD Vital Signs Most recent to 1 oldest [Reference Range]: Temperature Tympanic 36.5 degC [36.6-38.1 degC] *LOW* (03/05/16 10:11 AM) Peripheral Pulse 68 bpm Rate [60-100 bpm] (03/05/16 10:11 AM) Respiratory Rate 20 br/min [14-20 br/min] (03/05/16 10:11 AM) Blood Pressure 160/74 mmHg [90-140/60-90 mmHg] *HI* (03/05/16 10:11 AM) Problem List Condition Effective Dates Status [...] DAILY, # 90 tabs, 1 Refill(s), Pharmacy: [facility], TAKE ONE TABLET BY MOUTH ONCE DAILY Start Date: 12/30/15 Status: Ordered aspirin 81 mg oral tablet 81 mg 1 tabs, Oral, Daily, 0 Refill(s) Start Date: 10/09/15 Status: Ordered CITALOPRAM 40MG TAB See Instructions, TAKE ONE TABLET BY MOUTH ONCE DAILY, # 90 tabs, 1 Refill(s), eRx: [facility], TAKE ONE TABLET BY MOUTH ONCE DAILY Start Date: 11/11/15 Status: Ordered Crestor 20 mg oral tablet 20 mg 1 tabs, Oral, Daily, fax [phone], # 90 tabs, 2 Refill(s) Start Date: 02/24/16 Status: Ordered hydrALAZINE 25 mg oral tablet 25 mg 1 tabs, Oral, BID, # 60 tabs, 6 Refill(s), Pharmacy: [facility] , 1 tabs Oral BID Start Date: 02/20/16 Status: Ordered Levaquin 500 mg oral tablet 500 mg 1 tabs, Oral, q24hr, X 10 days, # 10 tabs, 0 Refill(s), Pharmacy: [facility], 1 tabs Oral q24hr,x10 days Start Date: 03/05/16 Stop Date: 03/15/16 Status: Ordered losartan 100 mg oral tablet See Instructions, TAKE ONE TABLET BY MOUTH ONCE DAILY, # 90 tabs, 1 Refill(s), eRx: [facility], TAKE ONE TABLET BY MOUTH ONCE DAILY Start Date: 02/03/16 Status: Ordered metoprolol tartrate 100 mg oral tablet 100 mg 1 tabs, Oral, BID, # 180 tabs, 1 Refill(s), Pharmacy: [facility] Start Date: 01/06/16 Stop Date: 07/04/16 Status: Ordered multivitamin Daily, 0 Refill(s) Start Date: 07/20/14 Status: Ordered Probiotic Formula caps, Oral, Daily, 0 Refill(s) Start Date: 11/11/15 Status: Ordered Tessalon Perles 100 mg oral capsule 100 mg 1 caps, Oral, TID, Cough, X 10 days, # 30 caps, 0 Refill(s), Pharmacy: [facility], 1 caps Oral TID,x10 days,PRN:Cough Start Date: 03/05/16 Stop Date: 03/15/16 Status: Ordered Vitamin D3 2000 intl units [...] Visit Note Author: Jonathan Dalal MD Date: 03/05/16 Assessment/Plan Acute bronchitis I've recommended Levaquin 500 mg daily for 10 days. If not improving over the next 4-5 days or further problems develop follow-up. Tessalon Perles as needed forcoughhave been prescribed as well. Ordered: Office Visit Level 4 Est 18039 Coronary arteriosclerosis This is chronic and stable. I do think she should probablycontact the cardiology office and let them know that she sick perhaps postpone thestress test for a couple of weeks until she is feeling better. Ordered: Office Visit Level 4 Est 46960 Essential hypertension Chronic stable no change in current treatment Ordered: Office Visit Level 4 Est 33011 Left otitis media Antibiotics as listed above. Again if not improving she will let me know. Ordered: Office Visit Level 4 Est 97841 Orders: benzonatate, 100 mg 1 caps, Oral, TID, Cough, X 10 days, # 30 caps, 0 Refill(s), Pharmacy: [facility], 1 caps Oral TID,x10 days,PRN:Cough levofloxacin, 500 mg 1 tabs, Oral, q24hr, X 10 days, # 10 tabs, 0 Refill(s), Pharmacy: [facility], 1 tabs Oral q24hr,x10 days
--- OUTSIDE RECORDS SUMMARY | 2017-02-04 10:10 | XMS REPORT | Referral Summary ---
Author Author [facility] Organization [facility] Address Unknown Phone Unavailable Care Team Providers Care Customer Business Manager Name Role Phone Preethi Dalal Primary Care Physician [phone] Encounter Date(s): 05/13/15 - 05/13/15 [facility] [address] [place] [address] Discharge Diagnosis: Essential hypertension Discharge Diagnosis: Generalized [...] DAILY, # 90 tabs, 1 Refill(s), eRx: [facility], TAKE ONE TABLET BY MOUTH ONCE DAILY Start Date: 06/21/15 Status: Ordered aspirin 81 mg oral tablet 81 mg 1 tabs, Oral, Daily, 0 Refill(s) Start Date: 10/09/15 Status: Ordered CITALOPRAM 40MG TAB See Instructions, TAKE ONE TABLET BY MOUTH ONCE DAILY, # 90 tabs, 1 Refill(s), eRx: [facility], TAKE ONE TABLET BY MOUTH ONCE DAILY Start Date: 11/11/15 Status: Ordered Crestor 20 mg oral tablet 1 tabs, Oral, Daily, fax [phone], # 90 tabs, 3 Refill(s) Start Date: 02/14/15 Status: Ordered losartan 100 mg oral tablet See Instructions, TAKE ONE TABLET BY MOUTH ONCE DAILY, # 90 tabs, 1 Refill(s), eRx: [facility], TAKE ONE TABLET BY MOUTH ONCE DAILY Start Date: 07/15/15 Status: Ordered metoprolol tartrate 100 mg oral tablet 100 mg 1 tabs, Oral, BID, # 60 tabs, 6 Refill(s), Pharmacy: [facility] Start Date: 05/13/15 Status: Ordered [...] Released: 04/26/2009 Document Revised: 01/30/2013 Document Reviewed: [facility] Patient Information 2014 [employer]. No follow up information was provided. Extracted from: Title: Office Visit Note Author: Jonathan Dalal MD Date: 05/13/15 Assessment/Plan Coronary arteriosclerosis Overall appears stable no change in current treatment. Prevnar was recommended and given today. Ordered: pneumococcal 13-valent conjugate vaccine, 0.5 mL, IntraMuscular, Once, First Dose: 05/13/15 11:00:00 CDT, Stop Date: 05/13/15 11:00:00 CDT, Form: Injection Office Visit Level 4 Est 55704 Depression Stable no change in current treatment recommended. Ordered: Office Visit Level 4 Est 23997 Essential hypertension I'm going to discontinue her [...] Form: Injection Office Visit Level 4 Est 33083 Generalized OA Overall stable may continue Celebrex as tolerated. Ordered: Office Visit Level 4 Est 83964 Lower back pain I think this is likely related to her osteoarthritis. We will check a UA today just to make sure there is no signs of infection or other kidney problems. Ordered: Office Visit Level 4 Est 83933 Urinalysis with Culture if Indicated Pure hypercholesterolemia Overall stable no change in current treatment. Follow-up in 3 months with fasting lab prior to that appointment. Ordered: Office Visit Level 4 Est 80602 Orders: metoprolol, 100 mg 1 tabs, Oral, BID, # 60 tabs, 6 Refill(s), Pharmacy : [facility]
--- OUTSIDE RECORDS SUMMARY | 2017-02-04 10:10 | XMS REPORT | Continuity of Care Document ---
Author Author [facility] Organization [facility] Address Unknown Phone Unavailable Allergies Medications Problems Procedures Results Encounters ACCT No. Visit Date/Time Discharge Status Pt. Type Provider Facility Loc./Unit Complaint [id number] 02/02/2014 10:44:00 02/02/2014 23 :59:59 CLS Outpatient [id number] 01/02/2014 10:09:00 01/02/2014 23 :59:59 CLS Outpatient
--- OUTSIDE RECORDS SUMMARY | 2017-02-04 10:10 | XMS REPORT | Referral Summary ---
Author Author [facility] Organization [facility] Address Unknown Phone Unavailable Care Team Providers Care Rehab Liaison Name Role Phone Preethi Dalal Primary Care Physician [phone] Encounter Date(s): 05/13/15 - 05/13/15 [facility] [address] [place] [id number] Discharge Diagnosis: Essential hypertension Discharge Diagnosis: [...] DAILY, # 90 tabs, 1 Refill(s), eRx: [facility], TAKE ONE TABLET BY MOUTH ONCE DAILY Start Date: 06/21/15 Status: Ordered chromium picolinate 500 mcg, Oral, Daily, 0 Refill(s) Start Date: 08/12/15 Status: Ordered cinnamon mg, Oral, BID, 0 Refill(s) Start Date: 08/12/15 Status: Ordered citalopram 40 mg oral tablet 1 tabs, Oral, Daily, # 90 tabs, 3 Refill(s), Pharmacy: [facility], 1 tabs Oral Daily Start Date: 11/09/14 Status: Ordered Crestor 20 mg oral tablet 1 tabs, Oral, Daily, fax [phone], # 90 tabs, 3 Refill(s) Start Date: 02/14/15 Status: Ordered losartan 100 mg oral tablet See Instructions, TAKE ONE TABLET BY MOUTH ONCE DAILY, # 90 tabs, 1 Refill(s), eRx: [facility], TAKE ONE TABLET BY MOUTH ONCE DAILY Start Date: 07/15/15 Status: Ordered LOSARTAN 100MG TAB See Instructions, TAKE ONE TABLET BY MOUTH EVERY DAY, # 90 tabs, 1 Refill(s), eRx: [facility], TAKE ONE TABLET BY MOUTH EVERY DAY Start Date: 01/10/15 Status: Ordered metoprolol tartrate 100 mg oral tablet 100 mg 1 tabs, Oral, BID, # 60 tabs, 6 Refill(s), Pharmacy: [facility] Start Date: 05/13/15 Status: Ordered multivitamin [...] 01/30/2013 Document Reviewed: [employer] Patient Information 2014 [employer]. No follow up information was provided. Extracted from: Title: Office Visit Note Author: Jonathan Dalal MD Date: 05/13/15 Assessment/Plan Coronary arteriosclerosis Overall appears stable no change in current treatment. Prevnar was recommended and given today. Ordered: pneumococcal 13-valent conjugate vaccine, 0.5 mL, IntraMuscular, Once, First Dose: 05/13/15 11:00:00 CDT, Stop Date: 05/13/15 11:00:00 CDT, Form: Injection Office Visit Level 4 Est 21200 Depression Stable no change in current treatment recommended. Ordered: Office Visit Level 4 Est 97452 Essential hypertension I'm going to discontinue her [...] Form: Injection Office Visit Level 4 Est 26340 Generalized OA Overall stable may continue Celebrex as tolerated. Ordered: Office Visit Level 4 Est 58855 Lower back pain I think this is likely related to her osteoarthritis. We will check a UA today just to make sure there is no signs of infection or other kidney problems. Ordered: Office Visit Level 4 Est 69189 Urinalysis with Culture if Indicated Pure hypercholesterolemia Overall stable no change in current treatment. Follow-up in 3 months with fasting lab prior to that appointment. Ordered: Office Visit Level 4 Est 31355 Orders: metoprolol, 100 mg 1 tabs, Oral, BID, # 60 tabs, 6 Refill(s), Pharmacy : [facility]
--- OUTSIDE RECORDS SUMMARY | 2017-02-04 10:10 | XMS REPORT | Summary of Care ---
Author Author Titi N[facility], [facility] Organization Unknown Address Unknown Phone Unavailable Care Team Providers Care Intake Nurse Name Role Phone Olya Campos DPM Unavailable Unavailable Festus Walls M.D. Unavailable Unavailable Jonathan Dalal Unavailable Unavailable Unavailable Unavailable Functional Status Name Dates Details Functional status health issues are not documented Status: Name Dates Details Cognitive status health issues are not documented Status: Problems Name Dates Details Foot pain (729.5, M79.673) Status: Active Post-nasal drip (784.91, R09.82) Status: Active Allergic rhinitis (477.9, J30.9) Status: Active Medications Name Dates Details Crestor [...] smoker Vital Signs Date Test Result Details 17-Dec-2016 10:13 Heart Rate 62 /min Status: Comments: Location: ; Physical Findings 95 Status: Comments: O2 Saturation Results Date Description Value Details Results not documented Plan of Care Name Dates Details Planned Observations Planned Goals not documented Instructions Name Dates Details Instructions not documented Encounters Appointment; Festus Walls M.D. Encounter Diagnosis: Problem not documented On 15-Sep-2016 13:30 Appointment; Festus Walls M.D. Encounter Diagnosis: Problem not documented On 08-Sep-2016 12:30
--- OUTSIDE RECORDS SUMMARY | 2017-02-04 10:10 | XMS REPORT | Referral Summary ---
Author Author [facility] Organization [facility] Address Unknown Phone Unavailable Care Team Providers Care Crane Rigger Name Role Phone Preethi Dalal Primary Care Physician [phone] Encounter Date(s): 11/11/15 - 11/11/15 [facility] [address] [place] [address] Discharge Diagnosis: Pure hypercholesterolemia Discharge Diagnosis: Essential hypertension Discharge Diagnosis: Coronary arteriosclerosis Discharge Diagnosis: Generalized OA Discharge Diagnosis: Hair loss Discharge Diagnosis: Chronic depression Discharge Disposition: 01-Home or Self Care Attending Physician: Jonathan Dalal MD Admitting Physician: Jonathan Dalal MD Vital Signs Most recent to 1 oldest [Reference Range]: Temperature Tympanic 36.3 degC [36.6-38.1 degC] *LOW* (11/11/15 9:53 AM) Peripheral Pulse 72 bpm Rate [60-100 bpm] (11/11/15 9:53 AM) Respiratory Rate 16 br/min [14-20 br/min] (11/11/15 9:53 AM) Blood Pressure 144/80 mmHg [90-140/60-90 mmHg] *HI* (11/11/15 9:53 AM) Problem List Condition Effective Dates Status [...] DAILY, # 90 tabs, 1 Refill(s), eRx: [facility], TAKE ONE TABLET BY MOUTH ONCE DAILY Start Date: 06/21/15 Status: Ordered aspirin 81 mg oral tablet 81 mg 1 tabs, Oral, Daily, 0 Refill(s) Start Date: 10/09/15 Status: Ordered CITALOPRAM 40MG TAB See Instructions, TAKE ONE TABLET BY MOUTH ONCE DAILY, # 90 tabs, 1 Refill(s), eRx: [facility], TAKE ONE TABLET BY MOUTH ONCE DAILY Start Date: 11/11/15 Status: Ordered Crestor 20 mg oral tablet 1 tabs, Oral, Daily, fax [phone], # 90 tabs, 3 Refill(s) Start Date: 02/14/15 Status: Ordered losartan 100 mg oral tablet See Instructions, TAKE ONE TABLET BY MOUTH ONCE DAILY, # 90 tabs, 1 Refill(s), eRx: [facility], TAKE ONE TABLET BY MOUTH ONCE DAILY Start Date: 07/15/15 Status: Ordered metoprolol tartrate 100 mg oral tablet 100 mg 1 tabs, Oral, BID, # 60 tabs, 6 Refill(s), Pharmacy: [facility]94 Start Date: 05/13/15 Status: Ordered multivitamin [...] Refill(s) Start Date: 08/12/15 Status: Ordered Results Chemistry Most recent to 1 oldest [Reference Range]: TSH with Reflex Free 2.06 T4 [0.35-4.94] (11/11/15 11:05 AM) Immunizations Vaccine Date Refusal Reason tetanus/diphth/pertuss [...] Visit Note Author: Jonathan Dalal MD Date: 11/11/15 Assessment/Plan Chronic depression Chronic stable no change in treatment. Some hair loss of recommended a TSH. Ordered: Office Visit Level 4 Est 58171 TSH with Reflex Free T4 Coronary arteriosclerosis Overall chronic and stable no signs of angina. Medications and treatments reviewed no changes are recommended. Recheck in 3 months. Ordered: Office Visit Level 4 Est 92474 Essential hypertension Blood pressure is fairly well controlled. Dictations reviewed report card reviewed and provided. Recent laboratory studies reviewed. Follow-up in 3 months. Ordered: Office Visit Level 4 Est 96291 Generalized OA Chronic stable no change in current treatment. Ordered: Office Visit Level 4 Est 28439 Hair loss I've recommended a TSH. If her loss continue she'll let us know. Ordered: TSH with Reflex Free T4 Pure hypercholesterolemia Chronic and stable. Recent laboratory studies reviewed. No changes are recommended. Follow-up in 6 months regarding lab. Orders: [facility] Medication, See Instructions, TAKE ONE TABLET BY MOUTH ONCE DAILY , # 90 tabs, 1 Refill(s), eRx: [facility], TAKE ONE TABLET BY MOUTH ONCE DAILY solifenacin, 5 mg 1 tabs, Oral, Daily, # 30 tabs, 0 Refill(s), samples given to patient (Rx) Addendum She has some symptoms of irritable bladder. I gave her some samples of Vesicare 5 mg by daily to try. She'll let us know if those are helpful.. Jonathan Dalal MD on November 11, 2015 11:00:12 REAGENT TENDER HELPER
--- OUTSIDE RECORDS SUMMARY | 2017-02-04 10:10 | XMS REPORT | Referral Summary ---
Author Author [facility] Organization [facility] Address Unknown Phone Unavailable Care Team Providers Care Signal Mechanic Name Role Phone Preethi Dalal Primary Care Physician [phone] Encounter Date(s): 05/13/15 - 05/13/15 [facility] [address] [place] [address] Discharge Diagnosis: Essential hypertension Discharge [...] DAILY, # 90 tabs, 1 Refill(s), eRx: [facility], TAKE ONE TABLET BY MOUTH ONCE DAILY Start Date: 06/21/15 Status: Ordered aspirin 81 mg oral tablet 81 mg 1 tabs, Oral, Daily, 0 Refill(s) Start Date: 10/09/15 Status: Ordered CITALOPRAM 40MG TAB See Instructions, TAKE ONE TABLET BY MOUTH ONCE DAILY, # 90 tabs, 1 Refill(s), eRx: [facility], TAKE ONE TABLET BY MOUTH ONCE DAILY Start Date: 11/11/15 Status: Ordered Crestor 20 mg oral tablet 1 tabs, Oral, Daily, fax [phone], # 90 tabs, 3 Refill(s) Start Date: 02/14/15 Status: Ordered losartan 100 mg oral tablet See Instructions, TAKE ONE TABLET BY MOUTH ONCE DAILY, # 90 tabs, 1 Refill(s), eRx: [facility], TAKE ONE TABLET BY MOUTH ONCE DAILY Start Date: 07/15/15 Status: Ordered metoprolol tartrate 100 mg oral tablet 100 mg 1 tabs, Oral, BID, # 60 tabs, 6 Refill(s), Pharmacy: [facility] Start Date: 05/13/15 Status: [...] Released: 04/26/2009 Document Revised: 01/30/2013 Document Reviewed: [facility] Patient Information 2014 [employer]. No follow up information was provided. Extracted from: Title: Office Visit Note Author: Jonathan Dalal MD Date: 05/13/15 Assessment/Plan Coronary arteriosclerosis Overall appears stable no change in current treatment. Prevnar was recommended and given today. Ordered: pneumococcal 13-valent conjugate vaccine, 0.5 mL, IntraMuscular, Once, First Dose: 05/13/15 11:00:00 CDT, Stop Date: 05/13/15 11:00:00 CDT, Form: Injection Office Visit Level 4 Est 58835 Depression Stable no change in current treatment recommended. Ordered: Office Visit Level 4 Est 97369 Essential hypertension I'm going to discontinue her [...] Form: Injection Office Visit Level 4 Est 69747 Generalized OA Overall stable may continue Celebrex as tolerated. Ordered: Office Visit Level 4 Est 45538 Lower back pain I think this is likely related to her osteoarthritis. We will check a UA today just to make sure there is no signs of infection or other kidney problems. Ordered: Office Visit Level 4 Est 16732 Urinalysis with Culture if Indicated Pure hypercholesterolemia Overall stable no change in current treatment. Follow-up in 3 months with fasting lab prior to that appointment. Ordered: Office Visit Level 4 Est 03184 Orders: metoprolol, 100 mg 1 tabs, Oral, BID, # 60 tabs, 6 Refill(s), Pharmacy : [facility]
--- OUTSIDE RECORDS SUMMARY | 2017-02-04 10:11 | XMS REPORT | Referral Summary ---
Author Author [facility], [facility] Organization [facility] Address Unknown Phone Unavailable Care Team Providers Care Ems Director Name Role Phone Preethi Dalal Primary Care Physician [phone] Encounter Date(s): 08/12/15 - 08/12/15 [facility] [address] [place] [address] Discharge Diagnosis: Essential hypertension Discharge Diagnosis: Depression Discharge Diagnosis: Coronary arteriosclerosis Discharge Diagnosis: Pure hypercholesterolemia Discharge Diagnosis: Generalized OA Discharge Disposition: 01-Home or Self Care Attending Physician: Jonathan Dalal MD Admitting Physician: Jonathan Dalal MD Vital Signs Most recent to 1 oldest [Reference Range]: Peripheral Pulse 72 bpm Rate [60-100 bpm] (08/12/15 10:16 AM) Respiratory Rate 16 br/min [14-20 br/min] (08/12/15 10:16 AM) Blood Pressure 140/90 mmHg [90-140/60-90 mmHg] (08/12/15 10:16 AM) Problem List Condition Effective Dates Status [...] DAILY, # 90 tabs, 1 Refill(s), Pharmacy: [facility], TAKE ONE TABLET BY MOUTH ONCE DAILY Start Date: 12/30/15 Status: Ordered aspirin 81 mg oral tablet 81 mg 1 tabs, Oral, Daily, 0 Refill(s) Start Date: 10/09/15 Status: Ordered CITALOPRAM 40MG TAB See Instructions, TAKE ONE TABLET BY MOUTH ONCE DAILY, # 90 tabs, 1 Refill(s), eRx: [facility], TAKE ONE TABLET BY MOUTH ONCE DAILY Start Date: 11/11/15 Status: Ordered Crestor 20 mg oral tablet 1 tabs, Oral, Daily, fax [phone], # 90 tabs, 3 Refill(s) Start Date: 02/14/15 Status: Ordered hydrALAZINE 25 mg oral tablet 25 mg 1 tabs, Oral, BID, # 60 tabs, 6 Refill(s), Pharmacy: [facility] , 1 tabs Oral BID Start Date: 02/20/16 Status: Ordered losartan 100 mg oral tablet See Instructions, TAKE ONE TABLET BY MOUTH ONCE DAILY, # 90 tabs, 1 Refill(s), eRx: [facility], TAKE ONE TABLET BY MOUTH ONCE DAILY Start Date: 02/03/16 Status: Ordered metoprolol tartrate 100 mg oral tablet 100 mg 1 tabs, Oral, BID, # 180 tabs, 1 Refill(s), Pharmacy: [facility] Start Date: 01/06/16 Stop Date: [...] Visit Note Author: Jonathan Dalal MD Date: 08/12/15 Assessment/Plan Coronary arteriosclerosis Chronic stable no signs of ischemia. Medications reviewed no changes recommended. Follow-up in 3 months. Ordered: Office Visit Level 4 Est 95219 Depression Overall stable on current dose of citalopram no changes recommended. Ordered: Office Visit Level 4 Est 21313 Essential hypertension Blood pressure is borderline. Medications reviewed no changes recommended. Report card reviewed and provided. Laboratory studies reviewed. Follow-up in 3 months. Ordered: Office Visit Level 4 Est 63406 Generalized OA Chronic stable no change in current treatment may continue to use Tylenol as needed. Ordered: Office Visit Level 4 Est 60759 Pure hypercholesterolemia Recent laboratory studies reviewed no changes are recommended at this time. Ordered: Office Visit Level 4 Est 03592
--- OUTSIDE RECORDS SUMMARY | 2017-02-04 10:11 | XMS REPORT | Referral Summary ---
Author Author [facility] Organization [facility] Address Unknown Phone Unavailable Care Team Providers Care Stack Attendant Name Role Phone Preethi Dalal Primary Care Physician [phone] Encounter Date(s): 04/01/16 - 04/01/16 [facility] [address] [place], [place] [address] Discharge Disposition: 01-Home or Self Care Attending Physician: Catina Vegas MD Admitting Physician: Catina Vegas MD Referring Physician: Jonathan Dalal MD Vital Signs No data available for this section Problem List Condition Effective Dates Status Health [...] DAILY, # 90 tabs, 1 Refill(s), [facility], TAKE ONE TABLET BY MOUTH ONCE DAILY Start Date: 12/30/15 Status: Ordered aspirin 81 mg oral tablet 81 mg 1 tabs, Oral, Daily, 0 Refill(s) Start Date: 10/09/15 Status: Ordered CITALOPRAM 40MG TAB See Instructions, TAKE ONE TABLET BY MOUTH ONCE DAILY, # 90 tabs, 1 Refill(s), eRx: [facility], TAKE ONE TABLET BY MOUTH ONCE DAILY Start Date: 11/11/15 Status: Ordered Crestor 20 mg oral tablet 20 mg 1 tabs, Oral, Daily, fax [phone], # 90 tabs, 2 Refill(s) Start Date: 02/24/16 Status: Ordered hydrALAZINE 25 mg oral tablet 25 mg 1 tabs, Oral, BID, # 60 tabs, 6 Refill(s), Pharmacy: [facility] , 1 tabs Oral BID Start Date: 02/20/16 Status: Ordered losartan 100 mg oral tablet See Instructions, TAKE ONE TABLET BY MOUTH ONCE DAILY, # 90 tabs, 1 Refill(s), eRx: [facility], TAKE ONE TABLET BY MOUTH ONCE DAILY Start Date: 02/03/16 Status: Ordered metoprolol tartrate 100 mg oral tablet 100 mg 1 tabs, Oral, BID, # 180 tabs, 1 Refill(s), Pharmacy: [facility] Start Date: 01/06/16 Stop Date: [...] Former smoker; Type: Cigarettes Assessment and Plan No data available for this section
--- OUTSIDE RECORDS SUMMARY | 2017-02-04 10:11 | XMS REPORT | Continuity of Care Document ---
Author Author [facility] Address Unknown Phone Unavailable Care Team Providers Care Die Out Worker Name Role Phone Jonathan Dalal PP Unavailable Payers Payer name Insurance type Covered libertarian ID Authorization(s) Unknown Problems Condition Effective Dates (start - stop) Clinical Status CAD, Unspecified - *Chronic Hypertension, Unspecified - *Chronic Hypercholesterolemia - *Chronic Depression - *Chronic Fatigue / Malaise - *Chronic Myalgia - *Chronic Dyspnea - *Chronic Upper Respiratory Infection, Acute - *Acute CAD, Unspecified - *Chronic Hypertension, Unspecified - *Chronic Hypercholesterolemia - *Chronic Depression - *Chronic CAD, Unspecified - Chronic Hypertension, Unspecified - Chronic Hypercholesterolemia - Chronic Depression - Chronic Contact dermatitis and other eczema, unspecified cause - * Chronic Cervicalgia - *Acute Cough - *Acute CAD, [...] Dosage Effective Dates (start - stop) Status omega 4-ion-srg-fish oil 1,000 mg (120 mg-180 mg) capsule take 1 Capsule by Oral route every day 0 - Active Crestor 10 mg tablet take 1 tablet (10MG) by oral route every day 10 MG - No Longer Active Aspirin Low Dose 81 mg tablet,delayed release take 1 tablet (81MG) by oral route every day 81 MG - Active Multiple Vitamins Daily tablet take 1 Tablet by Oral route every day 0 - Active Norvasc 5 mg tablet Take 1 tablet by mouth every day. - Active citalopram 20 mg tablet Take 1 by mouth every day. - Active triamcinolone acetonide 0.1 % topical cream apply by topical route 2 times every day a thin layer to the affected area(s) 0 - Active losartan 100 mg tablet Take 1 by mouth every day. - Active Crestor 20 mg tablet take one tablet every other day - Active Immunizations Vaccine Date Status Comments Unknown Results Test Name Date and Time Measure Units Reference Range Abnormal Flag Comments Panel Description: Sedrate Sedimentation Rate 12:18:00 31 mm/hr 0-23 H Testing performed at [facility] Reference Lab [address] [place] [address] Test Architect Mathew Tomlinson MD Panel Description: QCY-Vkdgtzj-GML CRP High Sensitivity 12:18:00 5.99 0.00-0.90 H Relative risk of future cardiac event:Low: <1 mg/LIntermediate: 1 - 3 mg/ LHigh: >3 mg/LCaution:High Sensitive CRP values greater than 3 mg/ Lindicate an acute inflammation. Patients shouldbe advised to have a repeat measurement in 2-3weeks or after the infection is resolved.Testing performed at [facility] Reference Lab [address] [place] [address] Test Architect Mathew Tomlinson MD Panel Description: TSH-[facility] TSH 12:18:00 2.72 uIU/mL 0.35-4.94 Testing performed at [facility] Reference Lab [facility] [address] [place] [address] Test Architect Mathew Tomlinson MD Panel Description: CK Creatine Kinase (CPK) 12:18:00 55 U/L 29-168 Testing performed at [facility] Reference Lab [address] [facility] [address] Test Architect Mathew Tomlinson MD Panel Description: LDL Direct Measurement-[facility] LDL Direct 12:18:00 96 mg/dL 0-129 Testing performed at [facility] Reference Lab [address] [facility] [address] Test Architect Mathew Tomlinson MD Vital Signs Date / Time: Height Weight Pulse Rate Blood Pressure Temperature 11:11:00 64.00 in 179.00 lbs 80 /min 156/90 mm[Hg] /11:13:00 150/90 mm[Hg] Procedures Procedure Date Unknown Encounters Encounter Location Date Patient Visit [facility] Patient Visit [facility] Patient Visit [facility] Patient Visit [facility] Patient Visit [facility] Patient Visit [facility] Patient [facility] Patient Visit [facility] Patient Visit [facility] Patient Visit [facility] Patient Visit [facility] Patient Visit [facility] Card Patient Visit Conversion Patient Visit [facility] Advance Directives Directive Effective Date Unknown
--- OUTSIDE RECORDS SUMMARY | 2017-02-04 10:11 | XMS REPORT | Referral Summary ---
Author Author [facility] Organization [facility] Address Unknown Phone Unavailable Care Team Providers Care Director Of Occupational Therapy Name Role Phone Preethi Dalal Primary Care Physician [phone] Encounter VC Date(s): 04/01/16 - 04/01/16 [facility] [address] [place], [place] [address] Discharge Disposition: 01-Home or Self Care Attending Physician: Frank Espinal MD Admitting Physician: Frank Espinal MD Referring Physician: Jonathan Dalal MD Vital Signs Most recent to 1 oldest [Reference Range]: Apical Heart Rate 63 bpm [60-100 bpm] (04/01/16 10:46 AM) Blood Pressure 198/85 mmHg [90-140/60-90 mmHg] *HI* (04/01/16 10:46 AM) Problem List Condition Effective Dates Status [...] DAILY, # 90 tabs, 1 Refill(s), Pharmacy: [facility], TAKE ONE TABLET BY MOUTH ONCE DAILY Start Date: 12/30/15 Status: Ordered aspirin 81 mg oral tablet 81 mg 1 tabs, Oral, Daily, 0 Refill(s) Start Date: 10/09/15 Status: Ordered CITALOPRAM 40MG TAB See Instructions, TAKE ONE TABLET BY MOUTH ONCE DAILY, # 90 tabs, 1 Refill(s), eRx: [facility], TAKE ONE TABLET BY MOUTH ONCE DAILY Start Date: 11/11/15 Status: Ordered Crestor 20 mg oral tablet 20 mg 1 tabs, Oral, Daily, fax [phone], # 90 tabs, 2 Refill(s) Start Date: 02/24/16 Status: Ordered hydrALAZINE 25 mg oral tablet 25 mg 1 tabs, Oral, BID, # 60 tabs, 6 Refill(s), Pharmacy: [facility] , 1 tabs Oral BID Start Date: 02/20/16 Status: Ordered losartan 100 mg oral tablet See Instructions, TAKE ONE TABLET BY MOUTH ONCE DAILY, # 90 tabs, 1 Refill(s), eRx: [facility], TAKE ONE TABLET BY MOUTH ONCE DAILY Start Date: 02/03/16 Status: Ordered metoprolol tartrate 100 mg oral tablet 100 mg 1 tabs, Oral, BID, # 180 tabs, 1 Refill(s), Pharmacy: [facility] Start Date: 01/06/16 Stop Date: [...]
--- OUTSIDE RECORDS SUMMARY | 2017-02-04 10:11 | XMS REPORT | Referral Summary ---
Author Author [facility] Organization [facility] Address Unknown Phone Unavailable Care Team Providers Care Layout Former Name Role Phone Preethi Dalal Primary Care Physician [phone] Encounter VC Date(s): 05/03/15 - 05/03/15 [facility] [address] [place] [address] Discharge Diagnosis: Generalized OA Discharge Diagnosis: Essential hypertension Discharge Diagnosis: Coronary arteriosclerosis Discharge Diagnosis: Pure hypercholesterolemia Discharge Disposition: 01-Home or Self Care Attending Physician: Jonathan Dalal MD Admitting Physician: Jonathan Dalal MD Vital Signs Most recent to 1 oldest [Reference Range]: Temperature Tympanic 36.8 degC [36.6-38.1 degC] (05/03/15 1:23 PM) Peripheral Pulse 72 bpm Rate [60-100 bpm] (05/03/15 1:23 PM) Respiratory Rate 20 br/min [14-20 br/min] (05/03/15 1:23 PM) Blood Pressure 128/72 mmHg [90-140/60-90 mmHg] (05/03/15 1:23 PM) Problem List Condition Effective Dates Status Health [...] DAILY, # 90 tabs, 1 Refill(s), eRx: [facility], TAKE ONE TABLET BY MOUTH ONCE DAILY Start Date: 06/21/15 Status: Ordered aspirin 81 mg oral tablet 81 mg 1 tabs, Oral, Daily, 0 Refill(s) Start Date: 10/09/15 Status: Ordered CITALOPRAM 40MG TAB See Instructions, TAKE ONE TABLET BY MOUTH ONCE DAILY, # 90 tabs, 1 Refill(s), eRx: [facility], TAKE ONE TABLET BY MOUTH ONCE DAILY Start Date: 11/11/15 Status: Ordered Crestor 20 mg oral tablet 1 tabs, Oral, Daily, fax [phone], # 90 tabs, 3 Refill(s) Start Date: 02/14/15 Status: Ordered losartan 100 mg oral tablet See Instructions, TAKE ONE TABLET BY MOUTH ONCE DAILY, # 90 tabs, 1 Refill(s), eRx: [facility], TAKE ONE TABLET BY MOUTH ONCE DAILY Start Date: 07/15/15 Status: Ordered metoprolol tartrate 100 mg oral tablet 100 mg 1 tabs, Oral, BID, # 60 tabs, 6 Refill(s), Pharmacy: [facility] Start Date: 05/13/15 Status: Ordered [...] Visit Note Author: Jonathan Dalal MD Date: 05/03/15 Assessment/Plan Coronary arteriosclerosis Overall appears stable no signs of ischemia. Continue current treatment. Ordered: Office Visit Level 4 Est 68857 Essential hypertension Blood pressure looks good here today but has been running high at home. I've asked her to bring her cuff in and have it checked against our readings. And then go ahead and increase her metoprolol from 50 mg daily to 50 mg twice a day recheck in a month she has problems or concerns before then she'll let us know. Ordered: Office Visit Level 4 Est 32035 Generalized OA I will allow her to use her Celebrex as needed at home. Warned this could have a impact on her blood pressure. Ordered: Office Visit Level 4 Est 41344 Pure hypercholesterolemia Stable no change in current treatment. Keep routine follow up as previously recommended. Ordered: Office Visit Level 4 Est 61083 Orders: metoprolol, 50 mg 1 tabs, Oral, BID, # 180 tabs, 3 Refill(s), Pharmacy : [facility]
--- OUTSIDE RECORDS SUMMARY | 2017-02-04 10:11 | XMS REPORT | Summary of Care ---
Author Author T[facility], [facility] Organization Unknown Address Unknown Phone Unavailable Care Team Providers Care Retail Store Manager Name Role Phone Olya Campos DPM Unavailable [...] R09.82) Status: Active Medications Name Dates Details Triamcinolone Acetonide 0.1 % External Ointment APPLY AND GENTLY MASSAGE INTO AFFECTED AREA(S) TWICE DAILY. Quantity: 80 Olya Campos DPM * Start Active Aspirin Adult Low Strength 81 MG Oral Tablet Chewable * Refills: 0 * Start 15-Sep-2016 Active AmLODIPine Besylate TABS * Refills: 0 * Start 15-Sep-2016 Active Fluticasone Propionate 50 MCG/ACT Nasal Suspension USE 2 SPRAYS IN EACH NOSTRIL ONCE DAILY * Quantity: 1 Refills: 3 Titi Nair, Festus * Start 15-Sep-2016 Active Crestor 20 MG Oral Tablet TAKE 1 TABLET DAILY. * Refills: 0 Olya Campos DPM * Start Active Allergies and Adverse Reactions Name Dates [...]
--- OUTSIDE RECORDS SUMMARY | 2017-02-04 10:11 | XMS REPORT | Referral Summary ---
Author Organization Unknown Address Unknown Phone Unavailable Care Team Providers Care Cook Fry Name Role Phone Preethi Dalal Primary Care Physician [phone] Encounter VC Date(s): 02/07/15 - 02/07/15 [facility], [address] [place] [address] Discharge Diagnosis: Essential hypertension Discharge Diagnosis: Depressive disorder Discharge Diagnosis: Generalized OA Discharge Diagnosis: Coronary arteriosclerosis Discharge Diagnosis: Pure hypercholesterolemia Discharge Disposition: Home or Self Care Attending Physician: Jonathan Dalal MD Admitting Physician: Jonathan Dalal MD Vital Signs Most recent to 1 oldest [Reference Range]: Temperature Tympanic 36.1 degC [36.6-38.1 degC] *LOW* (02/07/15 10:38 AM) Peripheral Pulse 72 bpm Rate [60-100 bpm] (02/07/15 10:38 AM) Respiratory Rate 14 br/min [14-20 br/min] (02/07/15 10:38 AM) Blood Pressure 144/80 mmHg [90-140/60-90 mmHg] *HI* (02/07/15 10:38 AM) Problem List Condition Effective Dates Status [...] DAILY, # 90 tabs, 1 Refill(s), eRx: [facility], TAKE ONE TABLET BY MOUTH ONCE DAILY Special Instructions: TAKE ONE TABLET BY MOUTH ONCE DAILY Start Date: 09/18/14 Status: Ordered aspirin 81 mg oral tablet 1 tabs, Oral, Daily, # 30 tabs, 0 Refill(s) Start Date: 07/20/14 Status: Ordered Calcium 600+D tabs, Oral, TID, 0 Refill(s) Start Date: 07/20/14 Status: Ordered citalopram 40 mg oral tablet 1 tabs, Oral, Daily, # 90 tabs, 3 Refill(s), Pharmacy: [facility], 1 tabs Oral Daily Start Date: 11/09/14 Status: Ordered Crestor 20 mg oral tablet 1 tabs, Oral, Daily, fax [phone], # 90 tabs, 1 Refill(s) Special Instructions: fax [phone] Start Date: 07/10/14 Status: Ordered LOSARTAN 100MG TAB See Instructions, TAKE ONE TABLET BY MOUTH EVERY DAY, # 90 tabs, 1 Refill(s), eRx: [facility], TAKE ONE TABLET BY MOUTH EVERY DAY Special Instructions: TAKE ONE TABLET BY MOUTH EVERY DAY Start Date: 01/10/15 Status: Ordered metoprolol succinate 50 mg oral tablet, extended release 1 tabs, Oral, Daily, # 30 tabs, 6 Refill(s), Pharmacy: [facility] Start Date: 02/07/15 Status: Ordered multivitamin Daily, 0 Refill(s) Start Date: 07/20/14 Status: Ordered omega-3 polyunsaturated fatty acids oral capsule 1 caps, Oral, Daily, # 100 caps, 0 Refill(s) Start Date: 07/20/14 Status: Ordered Probiotic Formula caps, Oral, Daily, 0 Refill(s) Start Date: 07/20/14 Status: Ordered Results No data available for this section Immunizations Vaccine Date Refusal Reason tetanus/diphth/pertuss (Tdap) adult/adol 11/22/09 influenza virus vaccine, inactivated 08/21/14 pneumococcal 23-polyvalent vaccine 11/22/12 Procedures Procedure Date [...] Author: Jonathan Dalal MD Date: Family Medicine Cholesterol Cholesterol is a white, waxy, fat-like protein needed by your body in small amounts. The liver makes all the cholesterol you need. It is carried from the liver by the blood through the blood vessels. Deposits (plaque ) may build up on blood vessel perez. This makes the arteries narrower and stiffer. Plaque increases the risk for heart attack and stroke. You cannot feel your cholesterol level even if it is very high. The only way to know is by a blood test to check your lipid (fats) levels. Once you know your cholesterol levels, you should keep a record of the test results. Work with your caregiver to to keep your levels in the desired range. WHAT THE RESULTS MEAN: Total cholesterol is a rough measure of all the cholesterol in your blood. LDL is the so-called bad cholesterol. This is the type that deposits cholesterol in the perez of the arteries. You want this level to be low. HDL is the good cholesterol because it cleans the arteries and carries the LDL away. You want this level to be high. Triglycerides are fat that the body can either burn for energy or store. High levels are closely linked to heart disease. DESIRED LEVELS: Total cholesterol below 200. LDL below 100 for people at risk, below 70 for very high risk. HDL above 50 is good, above 60 is best. Triglycerides below 150. HOW TO LOWER YOUR CHOLESTEROL: Diet. Choose fish or white meat chicken and turkey, roasted or baked. Limit fatty cuts of red meat, fried foods, and processed meats, such as sausage and lunch meat. Eat lots of fresh fruits and vegetables. Choose whole grains, beans, pasta , potatoes and cereals. Use only small amounts of olive, corn or canola oils. Avoid butter, mayonnaise, shortening or palm kernel oils. Avoid foods with trans-fats. Use skim/nonfat milk and low-fat/nonfat yogurt and cheeses. Avoid whole milk, cream, ice cream, egg yolks and cheeses. Healthy desserts include alexx food cake, mary snaps, animal crackers, hard candy, popsicles, and low-fat/ nonfat frozen yogurt. Avoid pastries, cakes, pies and cookies. Exercise. A regular program helps decrease LDL and raises HDL. Helps with weight control. Do things that increase your activity level like gardening, walking, or taking the stairs. Medication. May be prescribed by your caregiver to help lowering cholesterol and the risk for heart disease. You may need medicine even if your levels are normal if you have several risk factors. HOME CARE INSTRUCTIONS Follow your diet and exercise programs as suggested by your caregiver. Take medications as directed. Have blood work done when your caregiver feels it is necessary. MAKE SURE YOU: Understand these instructions. Will watch your condition. Will get help right away if you are not doing well or get worse. Document Released: 08/03/2002 Document Revised: 01/30/2013 Document Reviewed: [facility] Patient Information 2014 [employer] No follow up information was provided. Extracted from: Title: Office Visit Note Author: Jonathan Dalal MD Date: 02/07/15 Assessment/Plan Coronary arteriosclerosis Stable no change in current treatment recommended. Ordered: Office Visit Level 4 Est 30195 Depressive disorder Overall this appears to be relatively stable no change in current medications or treatments are recommended. Ordered: Office Visit Level 4 Est 47999 Essential hypertension Blood pressures well hydrated here and been running high at home. I've recommended increasing metoprolol to 50 mg daily. She'll keep track her blood pressures and let me know so not improving. Follow-up in 3 months. Recent laboratory studies reviewed and report card reviewed as well. Ordered: Office Visit Level 4 Est 83143 Generalized OA Stable no change in current treatment. Ordered: Office Visit Level 4 Est 24972 Pure hypercholesterolemia Recent laboratory studies reviewed encouraged continued current treatment. Ordered: Office Visit Level 4 Est 77736 Orders: metoprolol, 1 tabs, Oral, Daily, # 30 tabs, 6 Refill(s), Pharmacy: [facility]
--- OUTSIDE RECORDS SUMMARY | 2017-02-04 10:11 | XMS REPORT | Referral Summary ---
Author Author [facility] Organization [facility] Address Unknown Phone Unavailable Care Team Providers Care Administration Professional Name Role Phone Preethi Dalal Primary Care Physician [phone] Encounter Date(s): 10/14/16 - 10/14/16 [facility] [address] [place] [address] [place] [address] Discharge Diagnosis: Essential hypertension Discharge Diagnosis: Peripheral artery disease Discharge Diagnosis: Neck pain Discharge Diagnosis: Coronary heart disease Discharge Diagnosis: Chronic depression Discharge Diagnosis: Hypercholesteremia Discharge Disposition: 01-Home or Self Care Attending Physician: Kd Dennison MD Admitting Physician: Kd Dennison MD Referring Physician: Jonathan Dalal MD Vital Signs Most recent to 1 oldest [Reference Range]: Peripheral Pulse 64 bpm Rate [60-100 bpm] (10/14/16 11:14 AM) Blood Pressure 170/80 mmHg [90-140/60-90 mmHg] *HI* (10/14/16 11:14 AM) Problem List Condition Effective Dates Status [...] DAILY, # 90 tabs, 1 Refill(s), eRx: [facility], TAKE ONE TABLET BY MOUTH ONCE DAILY Start Date: 09/18/16 Status: Ordered aspirin 81 mg oral tablet 81 mg 1 tabs, Oral, Daily, 0 Refill(s) Start Date: 10/09/15 Status: Ordered chlorthalidone 25 mg oral tablet 25 mg 1 tabs, Oral, Every other day, # 90 tabs, 5 Refill(s), Pharmacy: [facility], 1 tabs Oral Every other day Start Date: 10/14/16 Status: Ordered CITALOPRAM 40MG TAB See Instructions, TAKE ONE TABLET BY MOUTH ONCE DAILY, # 90 tabs, 1 Refill(s), eRx: [facility], TAKE ONE TABLET BY MOUTH ONCE DAILY Start Date: 05/11/16 Status: Ordered Crestor 20 mg oral tablet 20 mg 1 tabs, Oral, Daily, fax [phone], # 90 tabs, 2 Refill(s) Start Date: 02/24/16 Status: Ordered losartan 100 mg oral tablet See Instructions, TAKE ONE TABLET BY MOUTH ONCE DAILY, # 90 tabs, 2 Refill(s), eRx: [facility], TAKE ONE TABLET BY MOUTH ONCE DAILY Start Date: 07/03/16 Status: Ordered Metoprolol Tartrate 100 mg oral tablet See Instructions, TAKE ONE TABLET BY MOUTH TWICE DAILY, # 180 tabs, eRx: [facility], TAKE ONE TABLET BY [...]
--- OUTSIDE RECORDS SUMMARY | 2017-02-04 10:11 | XMS REPORT | Referral Summary ---
Author Author [facility] Organization [facility] Address Unknown Phone Unavailable Care Team Providers Care Extrusion Die Corrector Name Role Phone Preethi Dalal Primary Care Physician [phone] Encounter [facility] [id number] Date(s): 02/14/16 - 02/14/16 [facility] [address] [place] [id number] Discharge Diagnosis: Essential hypertension Discharge Diagnosis: Generalized OA Discharge Diagnosis: Coronary arteriosclerosis Discharge Diagnosis: Pure hypercholesterolemia Discharge Diagnosis: Irritable bladder Discharge Disposition: 01-Home or Self Care Attending Physician: Jonathan Dalal MD Admitting Physician: Jonathan Dalal MD Referring Physician: Jonathan Dalal MD Vital Signs Most recent to 1 oldest [Reference Range]: Temperature Tympanic 36.8 degC [36.6-38.1 degC] (02/14/16 9:28 AM) Peripheral Pulse 76 bpm Rate [60-100 bpm] (02/14/16 9:28 AM) Respiratory Rate 16 br/min [14-20 br/min] (02/14/16 9:28 AM) Blood Pressure 164/70 mmHg [90-140/60-90 mmHg] *HI* (02/14/16 9:28 AM) Problem List Condition Effective Dates Status [...] DAILY, # 90 tabs, 1 Refill(s), Pharmacy: [facility], TAKE ONE TABLET BY MOUTH ONCE DAILY Start Date: 12/30/15 Status: Ordered aspirin 81 mg oral tablet 81 mg 1 tabs, Oral, Daily, 0 Refill(s) Start Date: 10/09/15 Status: Ordered CITALOPRAM 40MG TAB See Instructions, TAKE ONE TABLET BY MOUTH ONCE DAILY, # 90 tabs, 1 Refill(s), eRx: [facility], TAKE ONE TABLET BY MOUTH ONCE DAILY Start Date: 11/11/15 Status: Ordered Crestor 20 mg oral tablet 1 tabs, Oral, Daily, fax [phone], # 90 tabs, 3 Refill(s) Start Date: 02/14/15 Status: Ordered losartan 100 mg oral tablet See Instructions, TAKE ONE TABLET BY MOUTH ONCE DAILY, # 90 tabs, 1 Refill(s), eRx: [facility], TAKE ONE TABLET BY MOUTH ONCE DAILY Start Date: 02/03/16 Status: Ordered metoprolol tartrate 100 mg oral tablet 100 mg 1 tabs, Oral, BID, # 180 tabs, 1 Refill(s), Pharmacy: [facility] Start Date: 01/06/16 Stop Date: [...] to 1 oldest [Reference Range]: UA Color Yellow (02/14/16 10:06 AM) UA Appear Clear (02/14/16 10:06 AM) UA pH [5.0-8.0] 6.5 (02/14/16 10:06 AM) UA Leuk Est Pos 1+ [Negative] *ABN* (02/14/16 10:06 AM) UA Nitrite Negative [Negative] (02/14/16 10:06 AM) UA Protein Negative [Negative] (02/14/16 10:06 AM) UA Glucose Negative [Negative] (02/14/16 10:06 AM) UA Ketones Negative [Negative] (02/14/16 10:06 AM) UA Urobilinogen 0.2 mg/dL [<1.0 mg/dL] (02/14/16 10:06 AM) UA Bili [Negative] Negative (02/14/16 10:06 AM) UA Blood [Negative] Negative (02/14/16 10:06 AM) UA Spec Grav 1.016 [1.003-1.030] (02/14/16 10:06 AM) Type Clean Catch (02/14/16 10:06 AM) UA WBC [0-4] 2-4 (02/14/16 10:06 AM) UA RBC [0-4] 0-4 (02/14/16 10:06 AM) Epithelial Cells 2-5 (02/14/16 10:06 AM) UA Hyal Cast [0-3] 1-3 (02/14/16 10:06 AM) Immunizations Vaccine Date Refusal Reason tetanus/diphth/pertuss [...] Visit Note Author: Jonathan Dalal MD Date: 02/14/16 Assessment/Plan Coronary arteriosclerosis It sounds like she may be having a mild angina equivalent. Medications reviewed no changes are recommended. She is not scheduled to see Dr. Dennison until this fall. I suggested we get her in to be seen a little morepromptly than that for hisrecommendationsregarding this Ordered: Office Visit Level 4 Est 34947 Essential hypertension Blood pressures mildly elevated here today. It's been running normal at home. Medications reviewed no changes are recommended at this time. Ordered: Comprehensive Metabolic Panel Lipid Panel Office Visit Level 4 Est 94059 Generalized OA Chronic stable no change in current treatment. Ordered: Office Visit Level 4 Est 84992 Irritable bladder She is on Vesicare it's somewhat questionable in my mind how much benefit she is receiving from this medication. It's likely contributing to her dry mouth. I suggested that we stop it and see how she does. If her frequency worsens we can always resume. I did recommend a UA today as well. Ordered: Office Visit Level 4 Est 57094 Urinalysis with Culture if Indicated Pure hypercholesterolemia Chronic stable no change in current treatment lab before next appointment. Ordered: Comprehensive Metabolic Panel Lipid Panel Office Visit Level 4 Est 87104 Orders: Internal Referral to Cardiology
--- OUTSIDE RECORDS SUMMARY | 2017-02-04 10:11 | XMS REPORT | Referral Summary ---
Author Author [facility] Organization [facility] Address Unknown Phone Unavailable Care Team Providers Care Cow Tester Name Role Phone Preethi Dalal Primary Care Physician [phone] Encounter [facility] Date(s): 05/29/16 - 05/29/16 [facility] [address] [place] [id number] Discharge Diagnosis: Acute bronchitis Discharge Disposition: 01-Home or Self Care Attending Physician: Jonathan Dalal MD Admitting Physician: Jonathan Dalal MD Vital Signs Most recent to 1 oldest [Reference Range]: Temperature Tympanic 36.8 degC [36.6-38.1 degC] (05/29/16 10:47 AM) Peripheral Pulse 60 bpm Rate [60-100 bpm] (05/29/16 10:47 AM) Blood Pressure 128/62 mmHg [90-140/60-90 mmHg] (05/29/16 10:47 AM) SpO2 91 % (05/29/16 10:47 AM) Problem List Condition Effective Dates Status [...] Active HYDROcodone Active Levaquin Swallowing difficulty Active lisinopril cough Active niacin rash Active Medications amLODIPine 5 mg oral tablet See Instructions, TAKE ONE TABLET BY MOUTH ONCE DAILY, # 90 tabs, 1 Refill(s), Pharmacy: [facility], TAKE ONE TABLET BY MOUTH ONCE DAILY Start Date: 12/30/15 Status: Ordered aspirin 81 mg oral tablet 81 mg 1 tabs, Oral, Daily, 0 Refill(s) Start Date: 10/09/15 Status: Ordered Ceftin 500 mg oral tablet 500 mg 1 tabs, Oral, BID, X 10 days, # 20 tabs, 0 Refill(s), Pharmacy: [place] [id number], 1 tabs Oral BID,x10 days Start Date: 05/29/16 Stop Date: 06/08/16 Status: Ordered CITALOPRAM 40MG TAB See Instructions, TAKE ONE TABLET BY MOUTH ONCE DAILY, # 90 tabs, 1 Refill(s), eRx: [facility]94, TAKE ONE TABLET BY MOUTH ONCE DAILY Start Date: 05/11/16 Status: Ordered Crestor 20 mg oral tablet 20 mg 1 tabs, Oral, Daily, fax [phone], # 90 tabs, 2 Refill(s) Start Date: 02/24/16 Status: Ordered losartan 100 mg oral tablet See Instructions, TAKE ONE TABLET BY MOUTH ONCE DAILY, # 90 tabs, 1 Refill(s), eRx: [facility], TAKE ONE TABLET BY MOUTH ONCE DAILY Start Date: 02/03/16 Status: Ordered metoprolol tartrate 100 mg oral tablet 100 mg 1 tabs, Oral, BID, # 180 tabs, 1 Refill(s), Pharmacy: [place] [id number] Start Date: 01/06/16 Stop Date: 07/04/16 Status: Ordered multivitamin Daily, 0 Refill(s) Start Date: 07/20/14 Status: Ordered predniSONE 10 mg oral tablet See Instructions, Take 4 tablets for 2 days, then 3 for 2 days then 2 for 2 days , then 1 for 2 days, # 20 Each, 0 Refill(s), Pharmacy: [facility], Take 4 tablets for 2 days, then 3 for 2 days then 2 for 2 days, then 1 for 2 days Start Date: 05/29/16 Status: Ordered Probiotic Formula caps, Oral, Daily, 0 Refill(s) Start Date: 11/11/15 Status: Ordered Vitamin D3 2000 intl units oral tablet Intl_Units tabs, Oral, Daily, 0 Refill(s) Start Date: 08/12/15 Status: Ordered Results Hematology Most recent to 1 oldest [Reference Range]: WBC [5.0-10.0 7.8 10*3/uL 10*3/uL] (05/29/16 10:40 AM) RBC [3.70-5.20] 4.73 (05/29/16 10:40 AM) Hgb [12.0-16.0 14.0 gm/dL gm/dL] (05/29/16 10:40 AM) Hct [37.0-47.0 %] 41.8 % (05/29/16 10:40 AM) MCV [80.0-96.0 fL] 88.4 fL (05/29/16 10:40 AM) MCH [26.0-34.0 pg] 29.6 pg (05/29/16 10:40 AM) MCHC [32.0-36.0 33.5 gm/dL gm/dL] (05/29/16 10:40 AM) RDW [0.0-14.5 %] 13.0 % (05/29/16 10:40 AM) Platelet [150-400 269 10*3/uL 10*3/uL] (05/29/16 10:40 AM) MPV [8.8-14.8 fL] 10.4 fL (05/29/16 10:40 AM) Neutrophils [50-70 53 % %] (05/29/16 10:40 AM) Lymphocytes [20-40 38 % %] (05/29/16 10:40 AM) Monocytes [4-8 %] 7 % (05/29/16 10:40 AM) Eosinophils [0-6 %] 2 % (05/29/16 10:40 AM) Basophils [0-2 %] 0 % (05/29/16 10:40 AM) Neutro Absolute 4.13 10*3 [2.50-7.00 10*3] (05/29/16 10:40 AM) Lymph Absolute 2.94 10*3 [1.00-4.00 10*3] (05/29/16 10:40 AM) [place] Absolute 0.58 10*3 [0.20-0.80 10*3] (05/29/16 10:40 AM) Eos Absolute 0.12 10*3 [0.00-0.60 10*3] (05/29/16 10:40 AM) Baso Absolute 0.02 [0.00-0.30] (05/29/16 10:40 AM) Immunizations Vaccine Date Refusal Reason tetanus/diphth/pertuss [...] Visit Note Author: Jonathan Dalal MD Date: 05/29/16 Assessment/Plan 1.Acute bronchitis, Acute bronchitis due to other specified organisms We did do a chest x-ray today and appears negative. CBC shows a normal white count. She may have developed anacute bronchitis or didn't get completely cleared last time. I recommended that we go ahead and give her an additional 10 days of cefuroxime 500 mg twice a day. Also put her onshort tapering dose ofprednisone. If she's not improving or has further problems she'll let us now. Ordered: Office Visit Level 3 Est 72085 Cough Ordered: Office Visit Level 3 Est 73471 Fever Ordered: Office Visit Level 3 Est 98086 Orders: cefuroxime, 500 mg 1 tabs, Oral, BID, X 10 days, # 20 tabs, 0 Refill(s ), Pharmacy: [facility], 1 tabs Oral BID,x10 days predniSONE, See Instructions, Take 4 tablets for 2 days, then 3 for 2 days then 2 for 2 days, then 1 for 2 days, # 20 Each, 0 Refill(s), Pharmacy: [facility], Take 4 tablets for 2 days, then 3 for 2 days then 2 for 2 days, then 1 for 2 days
--- OUTSIDE RECORDS SUMMARY | 2017-02-04 10:11 | XMS REPORT | Referral Summary ---
Author Author [facility] Organization [facility] Address Unknown Phone Unavailable Care Team Providers Care Structural Shop Helper Name Role Phone Preethi Dalal Primary Care Physician [phone] Encounter Date(s): 05/19/16 - 05/19/16 [facility] [address] [place] [id number] Discharge Diagnosis: Essential hypertension Discharge Diagnosis: Pure hypercholesterolemia Discharge Diagnosis: Coronary arteriosclerosis Discharge Diagnosis: Pneumonia Discharge Diagnosis: Depressive disorder Discharge Disposition: 01-Home or Self Care Attending Physician: Jonathan Dalal MD Admitting Physician: Jonathan Dalal MD Vital Signs Most recent to 1 oldest [Reference Range]: Temperature Tympanic 36.6 degC [36.6-38.1 degC] (05/19/16 9:58 AM) Peripheral Pulse 58 bpm Rate [60-100 bpm] *LOW* (05/19/16 9:58 AM) Respiratory Rate 20 br/min [14-20 br/min] (05/19/16 9:58 AM) Blood Pressure 124/72 mmHg [90-140/60-90 mmHg] (05/19/16 9:58 AM) SpO2 94 % (05/19/16 9:58 AM) Problem List Condition Effective Dates Status [...] DAILY, # 90 tabs, 1 Refill(s), Pharmacy: [facility] 794, TAKE ONE TABLET BY MOUTH ONCE DAILY Start Date: 12/30/15 Status: Ordered aspirin 81 mg oral tablet 81 mg 1 tabs, Oral, Daily, 0 Refill(s) Start Date: 10/09/15 Status: Ordered cefuroxime 500 mg oral tablet 500 mg 1 tabs, Oral, BID, X 10 days, # 20 tabs, 0 Refill(s), Pharmacy: [place] [id number], 1 tabs Oral BID,x10 days Start Date: 05/16/16 Stop Date: 05/26/16 Status: Ordered CITALOPRAM 40MG TAB See Instructions, TAKE ONE TABLET BY MOUTH ONCE DAILY, # 90 tabs, 1 Refill(s), eRx: [facility] 79, TAKE ONE TABLET BY MOUTH ONCE DAILY Start Date: 05/11/16 Status: Ordered Crestor 20 mg oral tablet 20 mg 1 tabs, Oral, Daily, fax [phone], # 90 tabs, 2 Refill(s) Start Date: 02/24/16 Status: Ordered losartan 100 mg oral tablet See Instructions, TAKE ONE TABLET BY MOUTH ONCE DAILY, # 90 tabs, 1 Refill(s), eRx: [facility]94, TAKE ONE TABLET BY MOUTH ONCE DAILY Start Date: 02/03/16 Status: Ordered metoprolol tartrate 100 mg oral tablet 100 mg 1 tabs, Oral, BID, # 180 tabs, 1 Refill(s), Pharmacy: [facility] 79 Start Date: 01/06/16 Stop Date: 07/04/16 [...] Visit Note Author: Jonathan Dalal MD Date: 05/19/16 Assessment/Plan 1.Coronary arteriosclerosis Chronic stable with no signs of ischemia. No changes in current treatment recommended. Fasting laboratory studies ordered for next week. Ordered: Comprehensive Metabolic Panel Lipid Panel Office Visit Level 4 Est 23445 2.Essential hypertension Blood pressure appears to be reasonably well controlled. Medications and treatments reviewed no changes are recommended. Laboratory studies ordered for next week. Report card reviewed and provided. Follow-up in 3 months. Ordered: Comprehensive Metabolic Panel Lipid Panel Office Visit Level 4 Est 92916 3.Pure hypercholesterolemia Chronic stable on current treatment. Laboratory studies ordered for next week. Ordered: Comprehensive Metabolic Panel Lipid Panel Office Visit Level 4 Est 18265 4.Depressive disorder, Major depressive disorder, recurrent, moderate Chronic stableon current treatment no changes are recommended at this time. Ordered: Office Visit Level 4 Est 91852 5.Pneumonia, Pneumonia, unspecified organism She seems to be slowly improvingwith the cefuroxime no changes in current treatment plan recommended. If she doesn'tshow ongoing improvementover the nextweekor if symptoms regress or worsen she'll let us now. Ordered: Office Visit Level 4 Est 78199
--- NOTE | 2017-02-04 10:15 | NUR ---
ADMIT ARRIVES TO ROOM 118 VIA WHEELCHAIR WITH [facility] VOLUNTEER AND SPOUSE. O2 RA. DENIES CHEST PAIN OR SHORTNESS OF BREATH UPON ARRIVAL. ALERT AND ORIENTED X3. PATIENT AND SPOUSE ORIENTED TO SURROUNDINGS. BED IN LOWEST POSITION, CALL LIGHT WITHIN REACH, SIDE RAILS UP X2, BED ALARM ACTIVATED.
[2017-02-04] MEDS ORDERED: LOSA100T44 PO (10:38)
[2017-02-04] MEDS ORDERED: CHLO25TA2 PO (10:38)
[2017-02-04] MEDS ORDERED: CHOL200024 PO (10:38)
[2017-02-04] MEDS ORDERED: METO100T5 PO (10:39)
[2017-02-04] MEDS ORDERED: SERT50TA PO (10:39)
--- NOTE | 2017-02-04 11:46 | HPPDOC ---
CARLOS SIBLEY V RETAIL PERFORMANCE COACH 02/04/17 1126: HPI - Adult Date DATE: 02/04/17 TIME: 11:23 General Chief Complaint: chest pain History of Present Illness Patient is a 77-year-old female who is currently under the primary care of Dr. Dalal and Dr. Dennison for cardiology. Today she presented to Dr. Dalal office for evaluation of intermittent chest pain. She reports that she has had intermittent episodes of chest pain for approximately 1 week. She reports that it is throbbing and sharp at times. She notices it more once she has been up and exerting herself and then sits to rest. She denies feeling short of breath or having palpitations. Otherwise does reports some dysuria.No other recent illnesses or injuries. She has a known cardiac history with coronary artery disease, history of cardiac bypass as well as bilateral carotid endarterectomy. Given her acute symptoms, accompanied with existing comorbidities. The hospitalist services were contacted and accepted patient for direct admission for further acute evaluation and treatment. Patient is seen on arrival to [facility]. She is alert and oriented and resting comfortably in bed with her at the bedside. She is noted to be mildly bradycardic with a rate of 54 on bedside telemetry. She currently is without pain on examination. Admission vital signs are reviewed. Temperature 97.6, pulse 54, respiration 18, blood pressure 140/66, room air saturations 93% . All further labs and EKG are pending at time of examination. We did discuss advanced directives and patient does verbalize her wish to be a full code Past Medical History Past Medical History Coronary artery disease with cardiac bypass. Carotid artery disease with bilateral endarterectomy. Hypertension Hypercholesterolemia Depression History of DVT- 2002 Former tobacco user- quit 1989 Surgical History Patient's Surgical History: Left carotid endarterectomy-2009 Right carotid endarterectomy-2007 Cardiac bypass-2002 Bilateral cataract extraction-1999 Hysterectomy-1997 Tubal ligation-1979 Current Medications Home Meds Reported Medications Sertraline (Zoloft) 50 Mg Tablet, 50 MG PO HS, TAB 02/04/17 Metoprolol Tartrate (Metoprolol Tartrate) 100 Mg Tablet, 100 MG PO BIDWM, TAB Take 1 tablet, by mouth, 2 times a day. 02/04/17 Losartan Potassium (Losartan Potassium) 100 Mg Tablet, 100 MG PO DAILY, TAB 02/04/17 Cholecalciferol (Vitamin D3) (Vitamin D-3) 2,000 Unit Tablet, 1 TAB PO DAILY 02/04/17 Chlorthalidone (Chlorthalidone) 25 Mg Tablet, 1 TAB PO QOD, TAB BEST TAKEN WITH FOOD. 02/04/17 Aspirin (Aspir 81) 81 Mg Tablet.dr, 81 MG PO DAILY 05/20/11 Multivitamins W-Minerals (Multivitamin) 1 Cap Capsule, 1 CAP PO DAILY 05/20/11 Rosuvastatin (Crestor) 10 Mg Tablet, 10 MG PO DAILY 05/20/11 Amlodipine Besylate (Norvasc) 5 Mg Tablet, 5 MG PO DAILY 05/20/11 Allergies: Coded Allergies: acetaminophen (Verified Allergy, Severe, NAUSEA, 02/04/17) atorvastatin calcium (Verified Allergy, Severe, RASH, ITCHING, 02/04/17) hydrocodone bit (Verified Allergy, Severe, NAUSEA, 02/04/17) lisinopril (Verified Allergy, Severe, AIRWAY OBSTRUCTION, 02/04/17) niacin (Verified Allergy, Severe, REDNESS, RASH, 02/04/17) Family History Family History: Father- TB, emphysema Mother-heart disease, hypertension, high cholesterol Sister- heart disease, hypertension Brother-heart disease, hypertension Social History Smoking Status: Former smoker Substance Use Type: does not use Substance last used: prior to arrival Alcohol Intake: none Marital Status: Sexuality: male partner Housing: house Household Members: spouse Advance Directives: Yes DPOA for Healthcare Only (SILVIO BURKETT-), Yes Full Code Social History Comments Primary care provider, Dr. Dalal Recruiting Internship, Dr. Dennison Review of Systems Cardiovascular chest pain, see HPI General: burning, dysuria, frequency All Other Systems All Other Systems: Reviewed (remainder of 10-point ROS Neg.) Physical Exam General General Nourishment: well nourished, well developed Vital Signs Vital Signs Date Time Temp Pulse Resp B/P Pulse Ox O2 Delivery O2 Flow Rate FiO2 02/04/17 10:55 54 18 02/04/17 10:51 97.6 140/66 93 Room Air Height (Feet): 5 Height (Inches): 4.00 Eyes Brief: FOUND: EOMI, PERRL ENMT Brief: FOUND: mucosa moist, normal dentition, NOT FOUND: pharnyx erythema Neck Brief: FOUND: midline, NOT FOUND: adenopathy, carotid bruits, tracheal deviation Respiratory Brief: FOUND: clear all irby, equal bilaterally, NOT FOUND: wheezes Cardiovascular (brief) Cardiac Brief: FOUND: pedal edema (Trace), regular rate, regular rhythm, NOT FOUND: murmur Abdomen (brief) Abdominal Brief: FOUND: BS normo active x4, soft, NOT FOUND: distended, tender Integumentary (brief) Integumentary Brief: FOUND: dry, pink, warm Neurologic (brief) Neurological Brief: FOUND: cranial 2-12 intact Neurologic RN Documented GCS Eye Opening: Verbal: Motor: Total: Psychiatric (brief) FOUND: alert, attentive, normal affect, oriented Assessment & Plan Problems: (1) Chest pain, rule out acute myocardial infarction Status: Acute (2) Dysuria Status: Acute Assessment & Plan: Present on admission (3) HTN (hypertension) Status: Chronic (4) Carotid artery disease Status: Chronic Qualifiers: Laterality: bilateral Qualified Codes: I77.9 - Disorder of arteries and arterioles, unspecified (5) Hypercholesteremia Status: Chronic (6) CAD (coronary artery disease) Status: Chronic Plan/Intensity of Service Will admit patient to outpatient observation under the care of Dr. Araiza for chest pain rule out RI. Place patient on cardiac telemetry to monitor for dysrhythmias. Will obtain serial troponin 3 to rule out cardiac ischemia. Placed consult to Dr. Ott for further cardiac evaluation and recommendations. Did speak with him this morning. At this point, he recommends liquid diet only. This order is written. Will obtain the following laboratory studies on admission, CBC, CMP, troponin, EKG, proBNP, TSH, and d-dimer . Even complaints of dysuria. Will obtain a urinalysis to rule out urinary tract infection. SCDs to bilateral lower extremity for DVT prophylaxis. Patient may be up in room with assistance. Again, patient does wish to be a full code and this order is written. Will discuss further plan of care with attending, Dr. Araiza. At time of discharge medical care will return to primary care provider, Dr. Dalal DVT Prophylaxis: SCD'S Code Status Full Code Hospital Course Summary Disclaimer The hospital course summary below is not to be considered part of the above Progress Note. Hospital Course Summary 02/04/17 Will admit patient to outpatient observation under the care of Dr. Araiza for chest pain rule out RI. Place patient on cardiac telemetry to monitor for dysrhythmias. Will obtain serial troponin 3 to rule out cardiac ischemia. Placed consult to Dr. Ott for further cardiac evaluation and recommendations. Did speak with him this morning. At this point, he recommends liquid diet only. This order is written. Will obtain the following laboratory studies on admission, CBC, CMP, troponin, EKG, proBNP, TSH, and d-dimer . Even complaints of dysuria. Will obtain a urinalysis to rule out urinary tract infection. SCDs to bilateral lower extremity for DVT prophylaxis. Patient may be up in room with assistance. Again, patient does wish to be a full code and this order is written. Will discuss further plan of care with attending, Dr. Araiza. At time of discharge medical care will return to primary care provider, SUDHEER Ayers DO (HOSPITALIST) 02/04/17 1350: Past Medical History Current Medications Home Meds Reported Medications Sertraline (Zoloft) 50 Mg Tablet, 50 MG PO HS, TAB 02/04/17 Metoprolol Tartrate (Metoprolol Tartrate) 100 Mg Tablet, 100 MG PO BIDWM, TAB Take 1 tablet, by mouth, 2 times a day. 02/04/17 Losartan Potassium (Losartan Potassium) 100 Mg Tablet, 100 MG PO DAILY, TAB 02/04/17 Cholecalciferol (Vitamin D3) (Vitamin D-3) 2,000 Unit Tablet, 1 TAB PO DAILY 02/04/17 Chlorthalidone (Chlorthalidone) 25 Mg Tablet, 1 TAB PO QOD, TAB BEST TAKEN WITH FOOD. 02/04/17 Aspirin (Aspir 81) 81 Mg Tablet.dr, 81 MG PO DAILY 05/20/11 Multivitamins W-Minerals (Multivitamin) 1 Cap Capsule, 1 CAP PO DAILY 05/20/11 Rosuvastatin (Crestor) 10 Mg Tablet, 10 MG PO DAILY 05/20/11 Amlodipine Besylate (Norvasc) 5 Mg Tablet, 5 MG PO DAILY 05/20/11 Allergies: Coded Allergies: acetaminophen (Verified Allergy, Severe, NAUSEA, 02/04/17) atorvastatin calcium (Verified Allergy, Severe, RASH, ITCHING, 02/04/17) hydrocodone bit (Verified Allergy, Severe, NAUSEA, 02/04/17) lisinopril (Verified Allergy, Severe, AIRWAY OBSTRUCTION, 02/04/17) niacin (Verified Allergy, Severe, REDNESS, RASH, 02/04/17) Assessment & Plan Assessment Patient seen and examined. I agree with findings and plan above. No active chest pain. Family at bedside. Gen: Alert and oriented X 3. NAD CV: RRR, no murmur Lungs: CTAB, no w/r/r ABd: soft, NT, ND, +BS Ext: no c/c/e on clear liquids for Dr. Rivas to evaulate this afternoon. Serial troponins- negative so far. Telemetry. D-dimer negative. CARLOS SIBLEY APRN Feb 04, 2017 11:26 SUDHEER ARAIZA DO (HOSPITALIST) Feb 04, 2017 13:50 CARLOS SIBLEY APRN Feb 04, 2017 11:26 SUDHEER ARAIZA DO (HOSPITALIST) Feb 04, 2017 13:50
[2017-02-04 12:08] LABS: BASOPHILS % (AUTO) 0.3 % (0-2); EOSINOPHILS # (AUTO) 0.2 T/MM3 (0-0.5); EOSINOPHILS % (AUTO) 2.5 % (0-4); HCT - HEMATOCRIT 40.3 % (36-46); HGB - HEMOGLOBIN 13.1 GM/DL (12-16); IMMATURE GRANULOCYTE # (AUTO) 0.02 T/MM3 (0.00-0.03); IMMATURE GRANULOCYTE % (AUTO) 0.3 % (0.0-0.5); LYMPHOCYTES # (AUTO) 2.7 T/MM3 (1-4.8); LYMPHOCYTES % (AUTO) 40.6 % (23-45); MEAN CORPUSCULAR HGB 29.6 UUG (26-34); MEAN CORPUSCULAR HGB CONC(MCHC 32.5 GM/DL (31-37); MEAN PLATELET VOLUME 10.6 UM3 (9.4-12.4); MONOCYTES # (AUTO) 0.4 T/MM3 (0-0.8); MONOCYTES % (AUTO) 6.3 % (0-9.0); NEUTROPHILS #(AUTO)-ABSOLUTE 3.3 T/MM3 (1.8-7.7); RED BLOOD COUNT 4.43 M/MM3 (4.00-5.20); WBC - WHITE BLOOD COUNT 6.7 T/MM3 (4.5-11.0)
[2017-02-04 12:17] LABS: ALBUMIN 4.2 G/DL (3.5-5.0); ALBUMIN/GLOBULIN RATIO 1.4 RATIO (1.1-2.2); ALKALINE PHOSPHATASE 46 U/L (38-126); ALT (SGPT) 43 U/L (9-52); ANION GAP 10 MEQ/L (5-15); AST (SGOT) 33 U/L (14-36); BUN/CREATININE RATIO 21 RATIO (6-26); CALCIUM 9.2 MG/DL (8.4-10.2); CHLORIDE 101 MEQ/L (98-107); CO2 - CARBON DIOXIDE 33 MEQ/L (22-30); CREATININE 0.9 MG/DL (0.7-1.2); GLOMERULAR FILTRATION RATE 61; GLUCOSE 94 MG/DL (65-110); POTASSIUM 3.8 MEQ/L (3.6-5); SODIUM 144 MEQ/L (134-144); TOTAL PROTEIN 7.3 G/DL (6.3-8.2)
[2017-02-04 12:29] LABS: PROBNP 531 PG/ML (0-175)
[2017-02-04 12:48] LABS: THYROID STIM HORMONE-TSH 2.48 MIU/L (0.47-4.68)
[2017-02-04 13:07] LABS: BLOOD, URINE NEGATIVE (NEGATIVE); COLOR,URINE YELLOW (YELLOW); LEUKOCYTE ESTERASE ,URINE 1+ (NEGATIVE); NITRITE,URINE NEGATIVE (NEGATIVE); UROBILINOGEN,URINE 0.2 EU/DL (NORMAL)
[2017-02-04 13:20] LABS: BACTERIA,URINE NEGATIVE (NEGATIVE); RBC,URINE NONE SEEN /HPF (0-3); WBC,URINE NONE SEEN /HPF (0-5)
--- NOTE | 2017-02-04 14:47 | NUR ---
IN ROOM DR. MARTINEZ IN ROOM TO ASSESS PATIENT.
[2017-02-04] MEDS ORDERED: ENOXAPARIN 40 MG/0.4 ML INJECTION SQ SCH (16:00)
[2017-02-04] MEDS ORDERED: CLOPIDOGREL 75 MG TABLET PO ONE (16:15)
--- NOTE | 2017-02-04 16:34 | NUR ---
CHEST PAIN PATIENT C/O CHEST PAIN AT THIS TIME RATED 5/10. PATIENT SAYS THIS IS NEW SINCE DR. MARTINEZ WAS IN THE ROOM. ECHO CURRENTLY IN PROCESS. PATIENT STATES PAIN IS A DULL ACHE. ORDERS FROM DR. MARTINEZ RECEIVED NITRO PER PROTOCOL AND NITRO PASTE TO BE SCHEDULED FOR THIS EVENING. WILL CONTINUE TO MONITOR.
[2017-02-04] MEDS: NITROGLYCERIN 0.4 MG SUBLINGUAL TABLET SL PRN ×3 (16:37→18:18)
--- NOTE | 2017-02-04 16:37 | NUR ---
NITRO 1 TAB OF SUBLINGUAL NITRO ADMINISTERED AT THIS TIME. BP CURRENTLY 155/67, HR 58, NSR, 90% ON ROOM AIR, RR AT 20. WILL CONTINUE TO MONITOR.
--- NOTE | 2017-02-04 16:42 | NUR ---
NITRO #2 SECOND SUBLINGUAL NITRO ADMINISTERED AT THIS TIME. PAIN RATED AT A 4/10 AND IS STILL A DULL ACHE. BP 162/70, HR 77, O2 AT 93 ON ROOM AIR AND 20 RR. WILL CONTINUE TO MONITOR.
--- NOTE | 2017-02-04 16:50 | NUR ---
DR. MARTINEZ PHYSICIAN IN ROOM CURRENTLY FOR EVALUATION/ASSESSMENT. VERBAL ORDERS RECEIVED. SEE EMAR.
[2017-02-04] MEDS ORDERED: ENOXAPARIN 80 MG/0.8 ML INJECTION SQ ONE (17:00)
--- NOTE | 2017-02-04 17:36 | CONSF ---
DATE OF CONSULTATION 02/04/2017 REQUESTING PHYSICIAN FRANKLIN Sanon DO Patient was interviewed and examined. All available records were reviewed and the following conclusions were made: 1. Unstable angina. 2. Coronary artery disease with prior CABG. 3. Peripheral artery disease with worsening intermittent claudication. 4. Dyslipidemia. 5. Hypertension. DISCUSSION/PLAN 1. I concur with your current management of placing the patient in the hospital and obtaining serial cardiac enzymes. I am going to order an EKG in the morning for followup. 2. Echocardiogram regarding possible mild aortic valve stenosis. 3. PA and lateral chest x-ray and ProBNP level due to elevated jugular venous pressure on exam. 4. Lengthy discussion with the patient and her family regarding treatment and diagnostic modalities. They are in agreement with proceeding with pharmacological stress nuclear scan for risk stratification and guide immediate need for invasive workup. 5. I am going to treat the patient for acute coronary syndrome. I am going to restart all home medications including beta blockers, aspirin, Crestor, Amlodipine. I am going to load her with Plavix. 6. Holding chlorthalidone for now to see how her blood pressure responds to treatment above and see what her chest x-ray and BNP level come back. 7. Loading with Plavix. 8. Low-dose Lovenox 40 mg subcutaneously daily is started. If the patient is to have more chest pain this may be increased to a full dose. 9. Conservative versus invasive measures were fully discussed with the patient and family in detail and they are in agreement with the plan. 10. I am going to add nitroglycerin patch to optimize medical therapy. Will simply risk-stratify her on medical therapy tomorrow for further decision-making. 11. Her occupational health physician, Dr. Kd Dennison, is out of town. Patient will subsequently need close cardiovascular followup and outpatient at least noninvasive testing of her lower extremities regarding worsening claudication and leg weakness. Thank you very much for your consultation. HISTORY Mrs. Pat is a pleasant 77-year-old female patient of Dr. Dalal and Dr. Kd Dennison. She is a poor historian. She has had previous CABG x 2 in 2002. No [place]. Chronic atypical chest pain, both heaviness and sharp pain, fleeting pain lasting for seconds. She used to have nighttime chest pain as well. She had a stress nuclear scan with Dr. Frank Espinal in March 2016 that showed small anterolateral fixed perfusion defect that could represent an infarction, preserved LVEF. Patient had leg pain on the treadmill which needed the stress to be changed to pharmacological (Lexiscan). Patient has done okay up until about ten days ago. She started experiencing intermittent chest discomfort, sometimes sharp and occasionally in the center of the chest, lasting only momentarily. In addition, she started having pain under her left breast lasting up to 30 minutes, then it would quit for about 10-15 minutes and come back. This had some radiation to the left side of her neck. She noticed it was worse when she was up and about, doing some house chores such as cleaning. Described as a grabbing pain. The pain got better with rest. Patient did not have any sublingual nitroglycerin at home. She has also been having worsening weakness in both legs. They started hurting all over, not only in her knees. This happens when she does much around the house. When she simply sits down and rests that seems to get better. Denies resting claudication. She has had some associated shortness of breath with her chest pain, possibly some mild lightheadedness. She said three days ago her got her [id number] antacid pill. She thinks it may have been Equate Prilosec. She took one pill and felt better that day. She presented today to Dr. Dalal's office for her annual visit. She described the chest pain and he appropriately referred her to the hospital. He obtained an EKG which showed mild inferolateral ST-T changes suggestive of ischemia which were new in comparison with previous EKG from January 2016. She did not have high-risk ST-depression or elevation. She had mild chest pain this morning but it didn't last a long time. Since she has been in the hospital mostly lying bed she has not had any further chest pain. Again, she is a poor historian. No other problems or concerns at the present time. REVIEW OF SYSTEMS Denies weight loss or gain. Energy level is decreased. Denies sinus congestion or drainage. Denies significant dyspnea, cough, wheezing or phlegm production. Denies orthopnea, PND, lower extremity edema. Denies TIA or stroke-like symptoms. Denies syncope, severe dizziness or palpitations. Positive for headache. Positive for arthritis pain in her knees. Emotionally, she feels about the same. She has underlying depression treated with sertraline. Denies skin rash. Denies cold or heat intolerance but generally she tends to have cold extremities. PAST MEDICAL HISTORY/PAST SURGICAL HISTORY 1. Coronary artery disease, status post CABG x [address] Kd Dennison is her occupational health physician. No [place]. No subsequent heart catheterization. Denies angioplasty. 2. Heart catheterization complication in 2002 that required right femoral artery repair. 3. Hypertension. 4. Dyslipidemia. 5. Bilateral carotid artery stenosis. Required bilateral CEA (2009, 2010). Last carotid Doppler in September 2015 was reportedly negative. 6. Hypercholesterolemia. 7. Negative for diabetes. 8. Depression. 9. History of PE. 10. Hysterectomy. 11. Records include prior coronary angioplasty from 1979 (patient did not recall that). 12. Tubal ligation. HOME MEDICATIONS 1. Amlodipine 5 mg daily. 2. Aspirin. 3. Chlorthalidone 25 mg q.o.d. 4. Citalopram (changed to Zoloft). 5. Crestor 20 mg daily. 6. Losartan 100 mg daily. 7. Metoprolol 100 mg b.i.d. 8. Multivitamin. 9. Probiotic. 10. Sertraline 50 mg daily. 11. Vitamin D3. ALLERGIES Hydrocodone. Levaquin. Acetaminophen. Lisinopril caused cough. SOCIAL HISTORY Quit smoking at age 45. She had smoked two packs daily. Does not drink alcohol. to her longstanding . FAMILY HISTORY Positive for heart disease in brother and mother. PHYSICAL EXAM GENERAL: She is alert and oriented x 3, pleasant. Looks in no acute cardiorespiratory distress. Moderately obese. VITAL SIGNS: Stable. Afebrile. HEENT: Normocephalic, atraumatic. PSYCHIATRIC: Mood and affect are normal. NECK: Jugular venous pressure mildly elevated, estimated about 7 cm water. Carotid upstrokes palpable bilaterally - mildly decreased on the left side. No audible bruits. CHEST: Clear posteriorly. Anteriorly a few scattered rales, especially on the left side. CARDIOVASCULAR: Regular rate and rhythm with grade 2/6 mild aortic stenosis murmur with preserved A2 versus systolic ejection murmur. Positive S4. No S3 gallop. ABDOMEN: Soft, nontender, nondistended. Normoactive bowel sounds are present. No organomegaly or masses. EXTREMITIES: Lower extremities are without pitting edema. Peripheral pulses are palpable. The right femoral pulse is decreased with an old scar present. Pedal pulses are mildly decreased. SKIN: Without acute ischemic changes. Capillary refill is preserved. Skin is warm and pink as are the toes. NEUROLOGIC: Without focal sensorimotor deficits appreciated. DIAGNOSTIC DATA EKG shows sinus rhythm with inferolateral mild ST-T abnormality, nonspecific, but they are new since EKG from January 2016. No EKG evidence of prior infarction. Chest x-ray has not been performed yet. LABORATORY CBC, chemistry, liver enzymes and initial troponin remain normal. MTDD
[2017-02-04] MEDS: NITROGLYCERIN 2% OINTMENT 1 G PACKET TOP SCH (18:19)
[2017-02-04] MEDS ORDERED: NITROGLYCERIN 0.1 MG/HR PATCH TD SCH (19:00)
[2017-02-04] MEDS ORDERED: PRN ORDERS MC (19:30)
[2017-02-04] MEDS ORDERED: ACETAMINOPHEN 325 MG SUPPOSITORY RECTALLY PRN (19:30)
[2017-02-04] MEDS ORDERED: MAG-AL + SIM LIQUID 30 ML UDC PO PRN (19:30)
[2017-02-04] MEDS ORDERED: BISACODYL 10 MG SUPPOSITORY RECTALLY PRN (19:30)
[2017-02-04] MEDS ORDERED: MILK OF MAGNESIA 30 ML SUSP PO PRN (19:30)
[2017-02-04] MEDS ORDERED: NITROGLYCERIN 2% OINTMENT 1 G PACKET TOP SCH (20:00)
[2017-02-04] MEDS: SERTRALINE 50 MG TABLET PO SCH (22:30)
[2017-02-04] MEDS: ACETAMINOPHEN 325 MG TABLET PO PRN (22:51)
[2017-02-05] VITALS (27 sets, daily range): BP systolic 85–168; BP diastolic 52–118; PULSE 58–66; RESP 15–32; TEMP 97.8–98.4; O2SAT 83–98
--- NOTE | 2017-02-05 00:44 | NUR ---
Chart Check 24 hour chart check completed
[2017-02-05] MEDS: NITROGLYCERIN 2% OINTMENT 1 G PACKET TOP SCH ×2 (00:53→08:33)
[2017-02-05] MEDS ORDERED: ENOXAPARIN 80 MG/0.8 ML INJECTION SQ ONE (04:00)
[2017-02-05] MEDS: PANTOPRAZOLE 40 MG TABLET PO SCH (06:31)
--- NOTE | 2017-02-05 06:34 | NUR ---
SHIFT SUMMARY PATIENT ALERT AND ORIENTED X3 THIS SHIFT. VITAL SIGNS HAVE BEEN STABLE ON ROOM AIR. PATIENT REPORTED CHEST PAIN AT A 1 EARLY IN SHIFT, THIS SUBSIDED. PATIENT REPORTED A HEADACHE AND TYLENOL WAS GIVEN; THIS WAS EFFECTIVE. PATIENT HAS RESTED QUIETLY ALL NIGHT WITH NO FURTHER REPORTS OF CP OR N/V. WILL CONTINUE TO MONITOR.
[2017-02-05] MEDS: NORMAL SALINE 1,000 ML IV SCH ×2 (08:32→20:18)
[2017-02-05] MEDS: CHOLECALCIFEROL 400 UNIT TABLET PO SCH (08:35)
[2017-02-05] MEDS: LOSARTAN 100 MG TABLET PO SCH (08:37)
[2017-02-05] MEDS: MULTIVITAMIN + MINERAL TABLET PO SCH (08:38)
[2017-02-05] MEDS: CLOPIDOGREL 75 MG TABLET PO SCH (08:38)
[2017-02-05] MEDS: ROSUVASTATIN 20 MG TABLET PO SCH (08:39)
[2017-02-05] MEDS: AMLODIPINE 5 MG TABLET PO SCH (08:40)
[2017-02-05] MEDS: ASPIRIN *EC* 81mg TABLET PO SCH (08:40)
[2017-02-05] MEDS ORDERED: NITROGLYCERIN 0.1 MG/HR PATCH TD SCH (09:00)
[2017-02-05] MEDS ORDERED: ROSUVASTATIN 10 MG TABLET PO SCH (09:00)
--- NOTE | 2017-02-05 09:53 | DI ---
EXAM: CHEST, PA LATERAL COMPARISON: None available. HISTORY: ITS.REASON: cp . FINDINGS: The heart is upper limits of normal to mildly enlarged. Sternotomy wires are in place. The lungs are hyperinflated with flattening of the diaphragms and increased AP diameter which could be related to chronic emphysematous changes. The pulmonary vascularity appears unremarkable. The lungs are clear. There is no evidence for pleural effusion. There is no evidence for a pneumothorax. Mild endplate sclerosis and spurring is noted. Wedge deformity of an upper thoracic vertebral body is noted which may be old. IMPRESSION: 1. Mild cardiomegaly. 2. Chronic emphysematous changes. LOCATION OF DICTATION: [facility] [place]
[2017-02-05] MEDS ORDERED: LIDOCAINE 1% (10mg/ml) 30ml SDV ONE (11:26)
[2017-02-05] MEDS ORDERED: HEPARIN 1,000units in NS 500ml BAG IV ONE ×2 (11:26→14:33)
[2017-02-05] MEDS ORDERED: IOHEXOL 350mg/ml 200ml BOTTLE ONE ×2 (11:29→13:07)
--- NOTE | 2017-02-05 11:46 | NUR ---
OFF UNIT Pt off unit at this time to CV Lab via cart. pt denies CP. Will continue to monitor.
[2017-02-05] MEDS ORDERED: VERAPAMIL 5mg/2ml INJECTION IV ONE (11:47)
[2017-02-05] MEDS ORDERED: MIDAZOLAM 2mg/2ml INJECTION ONE ×2 (11:47→15:31)
[2017-02-05] MEDS ORDERED: FENTANYL 100mcg/2ml INJECTION ONE ×2 (11:47→13:41)
[2017-02-05] MEDS ORDERED: NITROGLYCERIN 50mg/10ml INJECTION IV ONE (11:47)
[2017-02-05] MEDS ORDERED: WATER FOR INJECTION 20 ML ONE (13:33)
[2017-02-05] MEDS ORDERED: NORMAL SALINE 50 ML IV ONE (13:34)
[2017-02-05] MEDS ORDERED: BIVALIRUDIN 250 MG IV ONE (13:34)
[2017-02-05] MEDS ORDERED: SALINE FLUSH 10ml SYRINGE ONE (13:41)
--- NOTE | 2017-02-05 15:17 | NUR ---
CM CM ATTEMPTED VISIT X3. PT IS AT PROCEDURE. CM CONTACT INFORMATION IS LEFT AT THE BEDSIDE.
--- NOTE | 2017-02-05 16:50 | NUR ---
ARRIVAL PT BROUGHT TO CCU FROM [facility] FIELD COORDINATOR. TR BAND IN PLACE ON LEFT WRIST, WEAK PULSE NOTED BUT LEFT HAND IS WARM. LEFT GROIN SITE IS SOFT AND BRUISED. FAMILY AT BEDSIDE
--- NOTE | 2017-02-05 17:03 | CVPROF ---
REFERRING PHYSICIAN 1. Sallie Villareal MD 2. Roseanna Lujan DO 3. M. Teddy Ott MD DIAGNOSES 1. Unstable angina. 2. Coronary artery disease. PROCEDURES PTCA and stenting of vein graft to right coronary artery. METHODS After the diagnostic films had been obtained, Dr. Teddy Ott kindly asked us to help with stenting of the vein graft. A left arterial line was in place, and we were able to pass a wire, but the guide would not cross the left subclavian proximal segment. We then used the left femoral approach, and a 6-Fr sheath was placed * *. A 6-Fr multipurpose catheter with side holes was used to obtain arcade games mechanic images. Intravenous Angiomax and oral Plavix were administered. A Runthrough wire was advanced past the lesion site. A 2.5-mm balloon was used for predilatation. This was a complex lesion, requiring high-pressure dilatation. A 3 x 28-mm stent was deployed (Abbot drug-eluting). Within the stent margins, a 2.75-mm balloon was used, and high pressure inflations of up to 16 atmospheres were performed. Final cines were obtained. Mrs. Pat tolerated the procedure well. The sheath was then removed, a 6-Fr Mynx was deployed in the femoral area, and radial band was deployed in the arm. CORONARY ANGIOGRAMS Saphenous vein graft to distal RCA has generalized plaquing. The distal segment has a 90% stenosis. The feeding posterior and lateral branches have minor plaquing. Post stenting, there is 0% residual stenosis. There is no intimal disruption. There is excellent distal coronary flow (AMANDA grade 2). In detail, the entire vein graft is significantly improved in size. CONCLUSIONS Successful PTCA and stenting of saphenous vein graft to distal right coronary artery, using Miles drug-eluting stent (3 x 28 mm). [facility]
--- NOTE | 2017-02-05 17:37 | PNPDOC ---
Subjective Date DATE: 02/05/17 TIME: 17:37 Subjective Mrs. Pat was seen in the CCU post cath/stent. Multiple family members are at bedside. The pt is drowsy but responds to questions indicating that she did not have CP or dyspnea overnight. She was able to rest. She has some mild lower abd discomfort currently and reports urinary frequency prior to admission with dysuria. She reports her left thumb is numb now but was prior to admission. Spasm in the left radial artery occured with attempted PTCA/stent per radial approach requiring conversion to femoral approach. When the radial line was remeoved there was further spasm and IA nitroglycerine was given. Cath tech is present and monitoring oximety/perfusion of the left hand at the time of my arrival. Objective Vital Signs Vital signs Vital Signs Date Time Temp Pulse Resp B/P Pulse Ox O2 Delivery O2 Flow Rate FiO2 02/05/17 09:03 60 02/05/17 08:37 152/67 02/05/17 07:33 97.8 28 91 Room Air EXAM General-drowsy but responds appropriately to questions HEENT-conjugate gaze, conjunctiva clear, sclera anicteric Lungs-resp non-labored, decreased breath sounds throughout but clear anteriorly Cardiac-regular rate, S1S2 Abd-soft, mild tenderness without guarding epigastric and suprapubic area. BS diminished Ext-without edema Skin-left hand slightly dusky on my arrival, improved progressively after pressure in wrist dressing reduced Neuro-sensation intact bilat feet/hands, wiggles toes bilat feet Height (Feet): 5 Height (Inches): 4.00 Weight (Kilograms): 77.800 Laboratory Laboratory tLaboratory Tests 02/04/17 11:39 Laboratory Tests 02/04/17 11:39 troponin x 3 < 0.012 Assessment & Plan Problems: (1) CAD (coronary artery disease) Status: Chronic (2) Chest pain, rule out acute myocardial infarction Status: Acute Assessment & Plan: unstable angina (3) Spasm of artery Status: Acute Assessment & Plan: left radial, post cath (4) Dysuria Status: Acute Assessment & Plan: Present on admission; UA negative (5) HTN (hypertension) Status: Chronic (6) Hypercholesteremia Status: Chronic (7) Carotid artery disease Status: Chronic Qualifiers: Laterality: bilateral Qualified Codes: I77.9 - Disorder of arteries and arterioles, unspecified Assessment s/p cardiac cath with subsequent PTCA/stent high grade stenosis of 90% lesion in the SVG to the distal RCA. Procedure complicated by spasm in the L-radial artery, monitor closely while artery being compressed post procedure. Troponins ok, c/w unstable angina. No evidence of UTI. BP stable. Outpt eval PVD anticipated. Plan/Intensity of Service d/w family, nursing, and broadband technician. Labs and cath reports reviewed. Code Status Full Code Hospital Course Summary Disclaimer The hospital course summary below is not to be considered part of the above Progress Note. Hospital Course Summary 02/04/17 Will admit patient to outpatient observation under the care of Dr. Lujan for chest pain rule out WI. Place patient on cardiac telemetry to monitor for dysrhythmias. Will obtain serial troponin 3 to rule out cardiac ischemia. Placed consult to Dr. Ott for further cardiac evaluation and recommendations. Did speak with him this morning. At this point, he recommends liquid diet only. This order is written. Will obtain the following laboratory studies on admission, CBC, CMP, troponin, EKG, proBNP, TSH, and d-dimer . Even complaints of dysuria. Will obtain a urinalysis to rule out urinary tract infection. SCDs to bilateral lower extremity for DVT prophylaxis. Patient may be up in room with assistance. Again, patient does wish to be a full code and this order is written. Will discuss further plan of care with attending, Dr. Lujan. At time of discharge medical care will return to primary care provider, Dr. Dalal 02/05 s/p cardiac cath with subsequent PTCA/stent high grade stenosis of 90% lesion in the SVG to the distal RCA. Procedure complicated by spasm in the L-radial artery, monitor closely while artery being compressed post procedure. Troponins ok, c/w unstable angina. No evidence of UTI. BP stable. Outpt eval PVD anticipated. ARNALDO BANKS MD Feb 05, 2017 17:37 Will discuss further plan of care with attending, Dr. Lujan. At time of discharge medical care will return to primary care provider, ARNALDO Squires MD Feb 05, 2017 17:37
[2017-02-05] MEDS: ACETAMINOPHEN 325 MG TABLET PO PRN (18:35)
[2017-02-05] MEDS ORDERED: ONDANSETRON 4mg/2ml INJECTION IV PRN (19:00)
--- NOTE | 2017-02-05 19:05 | NUR ---
STATUS PT IS AWAKE AND TALKING. BRUISING NOTED ON BOTH THE LEFT GROIN AND LEFT WRIST. PT REPORTS BACK DISCOMFORT, TYLENOL GIVEN. FAMILY AT BEDSIDE.
--- NOTE | 2017-02-05 21:00 | NUR ---
BEDREST/ACTIVITY PT IS QUITE NON-COMPLIANT WITH ACTIVITY RESTRICTIONS, FREQUENTLY RAISES LEGS AND ROLLS ONTO EITHER SIDE, STAFF CONSTANTLY REINFORCING RESTRICTIONS AND REPOSITIONING PT TO BACK. PT ROLLS HER EYES AND IS QUITE UNINTERESTED IN TEACHING. ALSO ATTEMPTS TO REMOVE TR BAND WHICH IS STILL INFLATED WITH 8CC AIR. AGAIN, EDUCATION PROVIDED. WILL CONTINUE TO MONITOR.
--- NOTE | 2017-02-05 21:08 | CVPROF ---
DATE: 02/05/2017 PROCEDURE PERFORMED 1. Transradial left heart catheterization. 2. LV gram. 3. Coronary angiogram. 4. Saphenous vein graft injection. 5. WOLFE arteriogram. 6. Aortic root injection. 7. Left subclavian arteriogram. INDICATIONS 77 year-old female with prior CABG, peripheral artery disease and aortic stenosis. She presented with acute coronary syndrome. NARRATIVE OF PROCEDURE The patient was brought to the cardiac cath laboratory angina-free. Troponins were normal. EKG had nonspecific ST-T abnormalities, unchanged. She received IV sedation, Versed and fentanyl. Please refer to the printout sheet for exact amount give. I accessed the left radial artery without difficulty using modified Seldinger percutaneous technique. This was after injection of lidocaine 1%, about 1.5 cc. A 6-Sami Slender sheath was introduced in place. There was no Andrea catheter available. I went with the mammary catheter and performed WOLFE arteriogram and subclavian arteriogram. I then exchanged for a Natacha catheter as Andrea catheter was not available. I performed selective coronary angiogram, left coronary cusp injection, aortic root injection across the valve. Left heart catheterization and LV gram was performed. The procedure was well tolerated. There were no immediate complications. The patient remained in the cath laboratory in anticipation of intervention by Dr. Josué Simon, communicating with him regarding intervention to the [place] RCA. The patient is stable and angina-free. FINDINGS 1. HEMODYNAMICS: LV end diastolic pressure was 10 mmHg. There was a mild pressure gradient across the aortic valve of approximately 10 mmHg, [id number]. 2. WOLFE ARTERIOGRAM: The WOLFE was not used as a surgical conduit for CABG. It supplied the chest wall. 3. SUBCLAVIAN ARTERIOGRAM: Mild ostial plaquing, narrowing of about 50%. There is another area of narrowing of about 50% just distal to the mammary artery origin in the mid-to- distal left subclavian artery. 4. VEIN GRAFT: Vein graft is very large and supplying especially the entire left coronary artery system. This is attached to LAD with a great anastomosis site. Two diagonal branches are small to medium in caliber and widely patent. The LAD exhibits mild luminal irregularities proximally. The left circumflex artery is a nondominant vessel and gives origin to multiple obtuse marginal branches and is free from occlusive disease. The left main coronary artery is heavily calcified and is totally occluded. The right coronary artery is totally occluded at its mid segment. 5. AORTIC ROOT INJECTION: No aneurysm or dissection. Aortic valve is calcified. Opening is restricted to a kqtd-ij-bhgnvryw degree. Asyu-ax-towtxiol aortic stenosis. No aortic regurgitation. 6. Saphenous vein graft to the RCA exhibits minor scattered plaquing. Good anastomosis to the distal RCA. Distal to the anastomosis there is a medium length lesion that is severe and culminates into a subtotal occlusion with haziness suggestive of a small thrombus. The lesion is about 95%. Distal to that the RPDA is preserved and exhibits only minor plaquing. 7. LV gram shows normal wall motion, normal systolic function, normal ejection fraction of 65%. IMPRESSION 1. Severe coronary artery disease as manifested by totally occluded ostial left main coronary artery and totally occluded mid RCA. 2. Widely patent saphenous vein graft to LAD. This supplies the entire left coronary system in retrograde filling. The latter system, after the totally occluded left main, exhibits only minor scattered plaquing. 3. Saphenous vein graft to the RCA is patent. [place] RCA exhibits severe occlusion of 95% distal to the anastomosis of the vein graft (this vessel measures just over 2 mm in caliber). 4. Calcified aortic valve with brcc-ol-vpyhzgca restriction and mild pressure gradient. 5. No aortic dissection, aneurysm or aortic regurgitation. 6. Normal LV systolic function. 7. Normal filling pressures. PLAN 1. Proceed with intervention to the distal RCA. That is underway. 2. Arranging for outpatient arterial Doppler regarding her claudication. REGI
[2017-02-05] MEDS: SERTRALINE 50 MG TABLET PO SCH (21:56)
--- NOTE | 2017-02-05 23:44 | NUR ---
AGITATION PT FOUND TO HAVE EXITED BED W/O STAFF ASSIST, ATTEMPTING TO PUT ON UNDERWARE WHICH FETCHED FROM CLOSET, RN ATTEMPTS TO ASSIST PT WHO IS QUITE AGITATED AND STATES "IT'S NONE OF YOUR BUSINESS", RN PROVIDES EDU & REORIENTS PT, PT ALLOWS RN TO HELP, PT OVER TO TOILET, WILL NOT WAIT TO ALLOW RN TO PLACE HAT IN TOILET, UNMEASURED VOID. PT IS QUITE HATEFUL TO SPOUSE WHO LEAVES HOSPITAL AFTER STATING THAT PT IS "NEVER LIKE THIS", RN PROVIDES EDU TO SPOUSE. PT IS QUITE AGITATED & WANTS TO REMOVE EQUIPMENT, ETC. RN AGAIN REORIENTS AND PROVIDES EDU. MOMENTS LATER PT IS QUITE REMORSEFUL, APOLOGETIC AND TEARFUL, RN REASSURES PT WHO IS MUCH CALMER NOW, RESTING IN BED, WILL CONTINUE TO MONITOR.
[2017-02-06] VITALS (26 sets, daily range): BP systolic 108–153; BP diastolic 51–68; PULSE 56–67; RESP 14–35; TEMP 98.2–98.3; O2SAT 88–100
[2017-02-06 04:44] LABS: BASOPHILS % (AUTO) 0.1 % (0-2); HCT - HEMATOCRIT 34.4 % (36-46); HGB - HEMOGLOBIN 11.2 GM/DL (12-16); IMMATURE GRANULOCYTE # (AUTO) 0.01 T/MM3 (0.00-0.03); IMMATURE GRANULOCYTE % (AUTO) 0.1 % (0.0-0.5); LYMPHOCYTES # (AUTO) 2.5 T/MM3 (1-4.8); LYMPHOCYTES % (AUTO) 23.9 % (23-45); MEAN CORPUSCULAR HGB 29.7 UUG (26-34); MEAN CORPUSCULAR HGB CONC(MCHC 32.6 GM/DL (31-37); MEAN CORPUSCULAR VOLUME 91.2 UM3 (80-100); MEAN PLATELET VOLUME 10.4 UM3 (9.4-12.4); MONOCYTES # (AUTO) 0.7 T/MM3 (0-0.8); MONOCYTES % (AUTO) 6.4 % (0-9.0); NEUTROPHILS #(AUTO)-ABSOLUTE 7.2 T/MM3 (1.8-7.7); NEUTROPHILS % (AUTO) 69.5 % (33-66); RED BLOOD COUNT 3.77 M/MM3 (4.00-5.20); WBC - WHITE BLOOD COUNT 10.4 T/MM3 (4.5-11.0)
[2017-02-06 04:59] LABS: ANION GAP 8 MEQ/L (5-15); BUN/CREATININE RATIO 16 RATIO (6-26); CHLORIDE 101 MEQ/L (98-107); CO2 - CARBON DIOXIDE 31 MEQ/L (22-30); CREATININE 1.1 MG/DL (0.7-1.2); GLOMERULAR FILTRATION RATE 48; GLUCOSE 122 MG/DL (65-110); POTASSIUM 3.8 MEQ/L (3.6-5); SODIUM 140 MEQ/L (134-144)
[2017-02-06] MEDS: PANTOPRAZOLE 40 MG TABLET PO SCH (06:34)
[2017-02-06] MEDS: ROSUVASTATIN 20 MG TABLET PO SCH (08:57)
[2017-02-06] MEDS: ASPIRIN *EC* 81mg TABLET PO SCH (08:57)
[2017-02-06] MEDS: AMLODIPINE 5 MG TABLET PO SCH (08:57)
[2017-02-06] MEDS: LOSARTAN 100 MG TABLET PO SCH (08:57)
[2017-02-06] MEDS: MULTIVITAMIN + MINERAL TABLET PO SCH (08:58)
[2017-02-06] MEDS: CHOLECALCIFEROL 400 UNIT TABLET PO SCH (08:58)
[2017-02-06] MEDS: CLOPIDOGREL 75 MG TABLET PO SCH (08:58)
--- NOTE | 2017-02-06 10:45 | NUR ---
CM CM VISITED PT AND SPOUSE. CM EXPLAINED ROLE AND PROVIDED CONTACT INFORMATION. PT PLANS TO RETURN HOME TODAY. PT DENIES NEEDS. PT IS AWARE TO CONTACT CM IF NEEDS ARISE.
[2017-02-06] MEDS ORDERED: CLOP75TA PO (10:46)
[2017-02-06] MEDS ORDERED: NITR0.4T SL (10:46)
[2017-02-06] MEDS ORDERED: ROSU20TA PO (10:46)
--- NOTE | 2017-02-06 11:03 | ECHOF ---
DATE OF STUDY 02/04/2017 INDICATIONS Aortic stenosis murmur. Unstable angina. TECHNICAL QUALITY Technically good 2D, M-mode, Doppler echocardiographic images were submitted for interpretation. FINDINGS 1. CARDIAC CHAMBERS: All cardiac chamber measurements are normal. The aortic root diameter is normal. RV size and contractility appear normal. 2. LEFT VENTRICLE: Wall thickness is normal. Wall motion analysis is abnormal due to inferolateral wall and posterior wall hypokinesis. Left ventricular systolic function remains normal. Ejection fraction is estimated about 60%-65%. Diastolic dysfunction grade 1/4 is present. 3. VALVES: Aortic valve exhibits moderate sclerosis and calcification. Valve opening appears restricted visually up to a moderate degree. Mitral valve exhibits annular calcification. Valve excursion is normal. Tricuspid valve structure and motion appear normal. Normal valve excursion. 4. DOPPLER: Aortic stenosis study shows a peak flow velocity of 2.26 msec. LVOT diameter 2.0 cm calculates aortic valve area of 1.42 cm2 which appears to correlate with the visual appearance of the valve. There is mild mitral regurgitation, mild tricuspid regurgitation and very mild pulmonary insufficiency. 5. Central venous pressure is normal. Systolic PA pressure estimated at 39 mmHg. 6. No evidence of pericardial effusion, intracardiac masses or demonstrable shunts. IMPRESSION 1. Normal LV systolic function. EF 60%-65%. Inferior wall and posterior wall hypokinesis. 2. Nsvc-ub-sjzueqvm calcific aortic valve stenosis. 3. Mild mitral regurgitation. 4. Mitral annular calcification. 5. Mild pulmonary hypertension. 6. Normal central venous pressure. MTDD
--- NOTE | 2017-02-06 11:38 | NUR ---
Groin site Groin dressing changed. Area cleaned. Gauze/tegaderm placed back over incision site.
[2017-02-06] MEDS: NORMAL SALINE 1,000 ML IV SCH (11:43)
--- NOTE | 2017-02-06 12:22 | NUR ---
Discharge Pt discharged home in good condition. Discharge instructions were given to pt and pt's spouse. Instructions included, but not limited to: follow up appointment (pt to schedule both), s/s to report, care of both incisions (leg/wrist), new medication and side effects of each. Pt was wheeled to ER exit with all personal belongings. Addendum: 02/06/17 at 1224 by JOSE GÓMEZ RN 3 prescriptions were called into [facility] pharmacy
--- NOTE | 2017-02-06 13:27 | PNPDOC ---
Subjective Date DATE: 02/06/17 TIME: 13:19 Subjective NO C/O . slept ok. no angina or dyspnea. been up to BR w/o problems. didnt lie still and didnt keep L arm still. Dr Simon was unable to advence 6 Fr guide across sunclavian artey , so PCI occured thru L groin. had some radial arrty spasm yesterday , deneis numbenss tingling or pain. digits pink and warm. Objective Vital Signs Vital signs Vital Signs 02/06/17 02/06/17 02/06/17 02/06/17 01:30 02:00 02:30 03:00 Pulse 58 59 60 59 Resp 19 19 19 20 B/P 124/58 134/62 121/58 108/51 Pulse Ox 95 91 90 92 O2 Delivery Nasal Cannula Nasal Cannula Nasal Cannula Nasal Cannula O2 Flow Rate 2.00 2.00 2.00 2.00 02/06/17 02/06/17 02/06/17 02/06/17 03:30 04:00 04:27 04:30 Temp 98.2 Pulse 60 58 58 57 Resp 17 16 18 19 B/P 116/66 126/59 130/59 Pulse Ox 97 97 97 O2 Delivery Nasal Cannula Nasal Cannula Nasal Cannula O2 Flow Rate 2.00 2.00 2.00 02/06/17 02/06/17 02/06/17 02/06/17 05:00 05:30 06:00 06:30 Pulse 60 56 60 58 Resp 21 28 20 19 B/P 117/68 135/60 124/58 153/67 Pulse Ox 96 96 95 100 O2 Delivery Nasal Cannula Nasal Cannula Nasal Cannula Nasal Cannula O2 Flow Rate 2.00 2.00 2.00 2.00 02/06/17 02/06/17 02/06/17 02/06/17 08:00 08:01 08:30 08:51 Temp 98.3 Pulse 60 60 67 Resp 27 23 35 B/P 136/65 153/65 Pulse Ox 96 97 97 O2 Delivery Nasal Cannula Nasal Cannula Nasal Cannula O2 Flow Rate 2.00 2.00 2.00 02/06/17 02/06/17 02/06/17 02/06/17 08:57 09:00 09:01 09:21 Pulse 64 66 64 64 Resp 29 30 30 B/P 153/65 113/56 Pulse Ox 96 96 O2 Delivery Nasal Cannula Nasal Cannula O2 Flow Rate 2.00 2.00 02/06/17 02/06/17 02/06/17 10:00 10:30 11:00 Pulse 59 57 59 Resp 19 26 25 B/P 115/58 Pulse Ox 89 89 90 O2 Delivery Nasal Cannula Nasal Cannula Nasal Cannula O2 Flow Rate 2.00 2.00 2.00 Telemetry Rhythm: Sinus Rhythm Height (Feet): 5 Height (Inches): 4.00 Weight (Kilograms): 82.100 General Alert, Orientated x 3, No Acute Distress Eyes (Brief) EOMI, PERRL, NOT FOUND: trauma ENMT (Brief) mucosa moist Neck (Brief) NOT FOUND: JVD Respiratory (Brief) equal bilaterally Cardiovascular (Brief) murmur, regular rate, regular rhythm, NOT FOUND: pedal edema Capillary Refill: <2 sec Abdomen (Brief) BS normo active x4, soft, NOT FOUND: distended, tender (Brief) NOT FOUND: bleeding Extremities (Brief) Extremity : Extremity Finding: warm (bruise L forearm and L groin. radial pulse 2+ , pedal unchanged .digits warma nd pink), NOT FOUND: clubbing, cyanosis Lymphatic (Brief) NOT FOUND: adenopathy, lymphedema Musculoskeletal (Brief) NOT FOUND: deformity Integumentary (Brief) dry, pink, warm Neurologic (Brief) FOUND: cranial 2-12 intact, motor, sensory (NL), NOT FOUND: facial droop, ptosis Psychiatric (Brief) alert, normal affect Laboratory Laboratory Laboratory Tests 02/06/17 04:20 Laboratory Tests 02/06/17 04:20 Assessment & Plan Plan/Intensity of Service unstable angina s/p PETER to RCA thru SVG PAD stable for DC. ekg no acute changes labs ok. compliance w post cath instructions stressed to pt and GIANNA MARTINEZ MD Feb 06, 2017 13:23
--- NOTE | 2017-02-06 21:28 | DSPDOC ---
General Date Date DATE: 02/06/17 TIME: 21:11 Attending Physician Sallie Villareal MD Admitting Physician Sallie Villareal MD Consulting Physician Gianna Ott MD Admitting Diagnosis chest pain Discharge Diagnosis 1. Coronary artery disease 2. Unstable angina 3. Peripheral arterial disease/carotid vascular disease 4. Left radial artery vasospasm, postprocedure 5. Hypertension 6. Hyperlipidemia Procedures Cardiac catheterization 02/05/17 revealing severe coronary artery disease with totally occluded ostial left main and totally occluded mid RCA. Saphenous vein graft to the LAD was patent and saphenous vein graft to the RCA is patent but there is 95% stenosis of the RCA distal to the anastomosis of the vein graft. PTCA and stenting of saphenous vein graft to distal RCA with drug-eluting stent 02/05/17. Laboratory Laboratory Tests Test 02/06/17 04:20 White Blood Count 10.4T/MM3 (4.5-11.0) Red Blood Count 3.77M/MM3 (4.00-5.20) Hemoglobin 11.2GM/DL (12-16) Hematocrit 34.4% (36-46) Mean Corpuscular Volume 91.2UM3 (80-100) Mean Corpuscular Hemoglobin 29.7UUG (26-34) Mean Corpuscular Hemoglobin Concent 32.6GM/DL (31-37) RDW Standard Deviation 42.1FL (36.9-50.2) Platelet Count 208T/MM3 (130-400) Mean Platelet Volume 10.4UM3 (9.4-12.4) Immature Granulocyte % (Auto) 0.1% (0.0-0.5) Neutrophils (%) (Auto) 69.5% (33-66) Lymphocytes (%) (Auto) 23.9% (23-45) Monocytes (%) (Auto) 6.4% (0-9.0) Eosinophils (%) (Auto) 0.0% (0-4) Basophils (%) (Auto) 0.1% (0-2) Absolute Immature Granulocyte (auto 0.01T/MM3 (0.00-0.03) Absolute Neutrophils (auto) 7.2T/MM3 (1.8-7.7) Absolute Lymphocytes (auto) 2.5T/MM3 (1-4.8) Absolute Monocytes (auto) 0.7T/MM3 (0-0.8) Absolute Eosinophils (auto) 0.0T/MM3 (0-0.5) Absolute Basophils (auto) 0.0T/MM3 (0-0.2) Turbidity < 20 (0-20) Sodium Level 140MEQ/L (134-144) Potassium Level 3.8MEQ/L (3.6-5) Chloride Level 101MEQ/L (98-107) Carbon Dioxide Level 31MEQ/L (22-30) Anion Gap 8MEQ/L (5-15) Blood Urea Nitrogen 18.0MG/DL (7-17) Creatinine 1.1MG/DL (0.7-1.2) Glomerular Filtration Rate Calc 48 BUN/Creatinine Ratio 16RATIO (6-26) Glucose Level 122MG/DL (65-110) Calculated Osmolality 272MOSM/KG (261-280) Calcium Level 9.0MG/DL (8.4-10.2) Icterus Index < 2 (0-7) Chemistry Specimen Hemolysis < 15 (0-25) Hemoglobin on admission 02/04 was 13.1, creatinine 0.9 p BNP 531, TSH 2.48, d-dimer<150 Radiology Chest x-ray on admission demonstrated mild cardiomegaly and hyperinflated lungs with flattened diaphragms consistent with COPD. History of Present Illness Patient is a 77-year-old female who is currently under the primary care of Dr. West and Dr. Dennison for cardiology. Today she presented to Dr. West office for evaluation of intermittent chest pain. She reports that she has had intermittent episodes of chest pain for approximately 1 week. She reports that it is throbbing and sharp at times. She notices it more once she has been up and exerting herself and then sits to rest. She denies feeling short of breath or having palpitations. Otherwise does reports some dysuria.No other recent illnesses or injuries. She has a known cardiac history with coronary artery disease, history of cardiac bypass as well as bilateral carotid endarterectomy. Given her acute symptoms, accompanied with existing comorbidities. The hospitalist services were contacted and accepted patient for direct admission for further acute evaluation and treatment. Patient is seen on arrival to [facility]. She is alert and oriented and resting comfortably in bed with her at the bedside. She is noted to be mildly bradycardic with a rate of 54 on bedside telemetry. She currently is without pain on examination. Admission vital signs are reviewed. Temperature 97.6, pulse 54, respiration 18, blood pressure 140/66, room air saturations 93% . All further labs and EKG are pending at time of examination. We did discuss advanced directives and patient does verbalize her wish to be a full code Hospital Course 02/04/17 Will admit patient to outpatient observation under the care of Dr. Lujan for chest pain rule out [place]. Place patient on cardiac telemetry to monitor for dysrhythmias. Will obtain serial troponin 3 to rule out cardiac ischemia. Placed consult to Dr. Ott-initially considered pharmacologic stress test but ultimately opted for cardiac catheterization on 02/05. Nitroglycerin patch added to regimen of beta blockers, aspirin, amlodipine, and statin. Plavix initiated. Urinalysis obtained due to patient complaints of dysuria but unremarkable. 02/05 s/p cardiac cath with subsequent PTCA/stent high grade stenosis of 90% lesion in the SVG to the distal RCA. Procedure complicated by spasm in the L-radial artery, monitor closely while artery being compressed post procedure. Troponins ok, c/w unstable angina. BP stable. 02/06-discharge Mrs. Pat reports having no chest pain overnight. She had difficulty resting and had to move about frequently resulting in increased bruising at the left groin site. She reports that the groin site "leaked" overnight and nursing indicates the patient was flexing and extending her leg and standing at one point overnight. Numbness in her left hand resolved fully and her hand is warm. On examination the patient is alert and cooperative. Breath sounds are clear and cardiac rhythm regular. There is extensive bruising on the left forearm and mild/moderate bruising in the left groin. Her left hand is warm and capillary refill is normal. Discussed with Dr. Ott-rickie for discharge home on aspirin/Plavix. For cardiac follow-up in the near future. Patient is aware that she will require additional testing of her carotid arteries in the near future as well. Asked to follow-up with Dr. West in approximately one week. Post catheter/angioplasty/stent instructions provided. >30 minutes spent on patient care and discharge care coordination today on the date of discharge. -- Problems: (1) CAD (coronary artery disease) Status: Chronic (2) Chest pain, rule out acute myocardial infarction Status: Acute Assessment & Plan: unstable angina (3) Spasm of artery Status: Acute Assessment & Plan: left radial, post cath (4) Dysuria Status: Acute Assessment & Plan: Present on admission; UA negative (5) HTN (hypertension) Status: Chronic (6) Hypercholesteremia Status: Chronic (7) Carotid artery disease Status: Chronic Code Status Full Code Home Meds Active Scripts Rosuvastatin Calcium (Crestor) 20 Mg Tablet, 20 MG PO DAILY for hyperlipidemia, #30 TAB Prov:SALLIE VILLAREAL MD 02/06/17 Nitroglycerin (Nitrostat) 0.4 Mg Tablet, 0.4 MG SL Q5MIN Y for CHEST PAIN, #25 TAB Prov:SALLIE VILLAREAL MD 02/06/17 Clopidogrel Bisulfate (Plavix) 75 Mg Tablet, 75 MG PO DAILY for CAD for 30 Days , #30 TAB Prov:SALLIE VILLAREAL MD 02/06/17 Reported Medications Sertraline (Zoloft) 50 Mg Tablet, 50 MG PO HS, TAB 02/04/17 Metoprolol Tartrate (Metoprolol Tartrate) 100 Mg Tablet, 100 MG PO BIDWM, TAB Take 1 tablet, by mouth, 2 times a day. 02/04/17 Losartan Potassium (Losartan Potassium) 100 Mg Tablet, 100 MG PO DAILY, TAB 02/04/17 Cholecalciferol (Vitamin D3) (Vitamin D-3) 2,000 Unit Tablet, 1 TAB PO DAILY 02/04/17 Chlorthalidone (Chlorthalidone) 25 Mg Tablet, 1 TAB PO QOD, TAB BEST TAKEN WITH FOOD. 02/04/17 Aspirin (Aspir 81) 81 Mg Tablet.dr, 81 MG PO DAILY 05/20/11 Multivitamins W-Minerals (Multivitamin) 1 Cap Capsule, 1 CAP PO DAILY 05/20/11 Amlodipine Besylate (Norvasc) 5 Mg Tablet, 5 MG PO DAILY 05/20/11 Discontinued Reported Medications Rosuvastatin (Crestor) 10 Mg Tablet, 10 MG PO DAILY 05/20/11 Face to Face Encounter I met with patient on the day of dismissal and discussed follow up appointments , medications, and safety plan. Discharge Disposition home Copies To 1: CAITLYN DENNISON MD; JILL WEST MD Copies To 2: EUFEMIA GOMEZ MD; GIANNA OTT MD, ROBERTA L MD Feb 06, 2017 21:17
--- OUTSIDE RECORDS SUMMARY | 2017-02-08 16:02 | XMS REPORT | Continuity of Care Document ---
Author Author [facility] Organization [facility] Address Unknown Phone Unavailable Allergies Medications Problems Procedures Results Encounters ACCT No. Visit Date/Time Discharge Status Pt. Type Provider Facility Loc./Unit Complaint [id number] 02/02/2014 10:44:00 02/02/2014 23 :59:59 CLS Outpatient [id number] 01/02/2014 10:09:00 01/02/2014 23 :59:59 CLS Outpatient
--- OUTSIDE RECORDS SUMMARY | 2017-02-08 16:02 | XMS REPORT | Continuity of Care Document ---
Author Author [facility] Organization [facility] Address Unknown Phone Unavailable Support Name Relationship Address Phone SUDHEER ARAIZA (HOSPITALIST) DO Caregiver [address] [place] [address] Unavailable ARNALDO BANKS MD Caregiver [address] [place] [address] Unavailable JILL WEST MD Caregiver [address] [place] [address] Unavailable TOYA BURKETT Next Of Kin [address] [place] [address] Insurance Providers Guarantor Aurelia Burkett Address [address] [facility] [address] [place] [address] Email DENIED 02-04-17 Payer [facility] Policy Number [id number] Subscriber's Name Aurelia Burkett Relationship 18 Self Group Number [id number] Effective Date 05 Payer Medicare Policy Number [id number] Subscriber's Name Aurelia Burkett Relationship 18 Self Effective Date 02 Advance Directives Directive Response Recorded Date/Time Ordered Resuscitation Status Full Code 02/04/17 11:23am Resuscitation Documents on File No 02/04/17 10:22am DPOA for Healthcare Only Y SILVIO KWADWO- 02/04/17 11:46am Living Will Yes 02/04/17 10:22am Problems Active Problems Medical Problem Onset Date Status CAD (coronary artery disease) Unknown Chronic Carotid artery disease Unknown Chronic Chest pain, rule out acute myocardial infarction Unknown Acute Dysuria Unknown Acute HTN (hypertension) Unknown Chronic Hypercholesteremia Unknown Chronic Spasm of artery Unknown Acute Medications Current Home Medications Medication Dose Units Route Directions Days Qty Instructions Start Date Amlodipine Besylate (Norvasc) 5 Mg Tablet 5 Mg Oral Daily Aspirin (Aspir 81) 81 Mg Tablet. 81 Mg Oral Daily 05/20/11 Chlorthalidone 25 Mg Tablet 1 Tab Oral Every Other Day BEST TAKEN WITH FOOD. 02/04/17 Cholecalciferol (Vitamin D3) (Vitamin D-3) 2,000 Unit Tablet 1 Tab Oral Daily 02/04/17 Clopidogrel Bisulfate (Plavix) 75 Mg Tablet 75 Mg Oral Daily for Cad 30 Days 30 Tablet 02/06/17 Losartan Potassium 100 Mg Tablet 100 Mg Oral Daily 02/04/17 Metoprolol Tartrate 100 Mg Tablet 100 Mg Oral Twice Daily With Meals Take 1 tablet, by mouth, 2 times a day. 02/04/17 Multivitamins W-Minerals (Multivitamin) 1 Cap Capsule 1 Cap Oral Daily 05/20/11 Nitroglycerin (Nitrostat) 0.4 Mg Tablet 0.4 Mg Sublingual Every 5 Minutes X 3 as needed for Chest Pain 25 Tablet 02/06/17 Rosuvastatin Calcium (Crestor) 20 Mg Tablet 20 Mg Oral Daily for Hyperlipidemia 30 Tablet 02/06/17 Sertraline Hcl (Zoloft) 50 Mg Tablet 50 Mg Oral Bedtime 02/04/17 Past Home Medications Medication Directions Ordered Status Rosuvastatin Calcium (Crestor) 10 Mg Tablet, 10 Mg Oral Daily 05/20/11 Discontinued Social History Social History Problem Response Recorded Date/Time Onset Date Status Reason for Hospitalization chest pain 02/06/2017 11:10am Not Applicable Not Applicable Hx Substance Use No 05/20/2011 1:52pm Not Applicable Not Applicable Hx Alcohol Use Y OCCASIONAL SOCAIL DRINKING 05/20/2011 1:52pm Not Applicable Not Applicable Has the pt used tobacco in the last 12 months No 02/04/2017 10:23am Not Applicable Not Applicable Query Response Start Date Stop Date Smoking Status Former smoker Hospital Discharge Instructions Instructions: Care Instructions: Reason for Hospitalization: chest pain I was in the hospital because (patient own words): CHEST PAIN Discharge Diet: low-salt low-fat Discharge Activity: No heavy lifting, see cardiac catheter orders Follow Up Appointments: Dr. Ott-as instructed Dr. West next week if possible for general recheck and to discuss nightmares Pending Lab / Results: Follow up w/ your PCP Patient Instructions: You will need to be on Plavix (clopidogrel) for 6 months minimum after placement of stent. Continue aspirin as before. Dose of Crestor increased to 20 mg daily. Wound/Incision Care: See cardiac catheterization instructions Durable Medical Equipment: Not applicable Pain Scale Utilized to Educate Patient: 0-10 Pain Scale Pain Management/Treatment: Tylenol as needed Expected Signs/Symptoms: Achiness in left groin and left wrist. Notify Physician If: Bleeding from the left groin or if your left hand becomes numb or cold During Business Hours:: Please call the physician's office at After Business Hours:: Please call [phone] and have the shell sieve operator page the physician. Condition at time of discharge: Good Plan of Care Discharge Date 02/06/17 12:10pm Disposition 01 DISCHARGED HOME, SELF-CARE Instructions/Education Provided [facility] Heart Cath [facility] Heart Cath Trans Rad Chest Pain (DC) Prescriptions See Medication Section Care Plan and Goals See Discharge Instructions Section Functional Status Query Response Date Recorded Mobility Status Ambulatory February 06, 2017 11:10am Assistive Devices None February 06, 2017 11:10am Activity Limitations Weakness Fatigue Pain February 06, 2017 11:10am Feeding Ability Independent February 06, 2017 11:10am Toileting Ability Independent February 06, 2017 11:10am Grooming Ability Independent February 06, 2017 11:10am Dressing Ability Independent February 06, 2017 11:10am Driving Ability Dependent February 06, 2017 11:10am Housework Ability Assist February 06, 2017 11:10am Meal Preparation Ability Assist February 06, 2017 11:10am Stair Climbing Ability Dependent February 06, 2017 11:10am Ability to complete ADL's impeded by Impaired Mobility February 06, 2017 11:10am Cognitive/Perceptual Impairments Impaired vision Impaired hearing February 06, 2017 11:10am Visual Assistive Devices Glasses With patient February 04, 2017 10:26am Allergies, Adverse Reactions, Alerts Allergen Type Severity Reaction Status Last Updated hydrocodone bit Allergy Severe NAUSEA Active 02/04/17 atorvastatin calcium Allergy Severe RASH, ITCHING Active 02/04/17 Lisinopril Allergy Severe AIRWAY OBSTRUCTION Active 02/04/17 Niacin Allergy Severe REDNESS, RASH Active 02/04/17 Acetaminophen Allergy Severe NAUSEA Active 02/04/17 Immunizations Query Response on File Recorded Date/Time Hx Influenza Vaccination Y CURRENT 02/04/17 10:23am Hx Pneumococcal Vaccination Y 2YEARS AGO 02/04/17 10:23am Hx Influenza Vaccination Y CURRENT 02/04/17 10:23am Influenza Vaccine Hx FALL 201502/04/17 10:50am Vital Signs Acute Vital Signs Vital Response Date/Time Temperature (Fahrenheit) 98.3 deg F (96.8 - 99.1) 02/06/2017 8:51am Temperature (Calculated Celsius) 36.50996 degrees C (36.0 - 37.3) 02/06/2017 8:51am Pulse Rate (adult) 59 bpm (60 - 100) 02/06/2017 11:00am Respiratory Rate 25 breaths/min (10 - 20) 02/06/2017 11:00am O2 Sat by Pulse Oximetry 90 % (90 - 100) 02/06/2017 11:00am Oxygen Delivery Method Nasal Cannula 02/06/2017 11:00am Oxygen Flow Rate 2.00 L/min 02/06/2017 11:00am Blood Pressure 115/58 mm Hg 02/06/2017 10:00am Blood Pressure Source Automatic Cuff 02/06/2017 10:00am Height (Feet) 5 feet 02/04/2017 11:46am Height (Inches) 4.00 inches 02/04/2017 11:46am Weight (Kilograms) 82.100 kg 02/06/2017 8:51am Body Mass Index (BMI) 30.0 02/04/2017 10:19am Results Laboratory Results Test Name Result Units Flags Reference Collection Date/Time Result Date/ Time Comments White Blood Count 10.4 T/MM3 D 4.5-11.0 02/06/2017 4:20am 02/06/2017 5: 53am Red Blood Count 3.77 M/MM3 L 4.00-5.20 02/06/2017 4:20am 02/06/2017 5: 53am Hemoglobin 11.2 GM/DL D L 12-16 02/06/2017 4:20am 02/06/2017 5:53am Hematocrit 34.4 % D L 36-46 02/06/2017 4:20am 02/06/2017 5:53am Mean Corpuscular Volume 91.2 UM3 80-100 02/06/2017 4:20am 02/06/2017 5: 53am Mean Corpuscular Hemoglobin 29.7 UUG 26-34 02/06/2017 4:20am 2016 5:53am Mean Corpuscular Hemoglobin Concent 32.6 GM/DL 31-37 02/06/2017 4:20am 02/06/2017 5:53am RDW Standard Deviation 42.1 FL 36.9-50.2 02/06/2017 4:20am 02/06/2017 5 :53am Platelet Count 208 T/MM3 130-400 02/06/2017 4:02/06/2017 5:53am Mean Platelet Volume 10.4 UM3 9.4-12.4 02/06/2017 4:02/06/2017 5: 53am Neutrophils (%) (Auto) 69.5 % H 33-66 02/06/2017 4:02/06/2017 5: 53am Lymphocytes (%) (Auto) 23.9 % 23-45 02/06/2017 4:02/06/2017 5: 53am Monocytes (%) (Auto) 6.4 % 0-9.0 02/06/2017 4:02/06/2017 5:53am Eosinophils (%) (Auto) 0.0 % 0-4 02/06/2017 4:02/06/2017 5:53am Basophils (%) (Auto) 0.1 % 0-2 02/06/2017 4:02/06/2017 5:53am Immature Granulocyte % (Auto) 0.1 % 0.0-0.5 02/06/2017 4:2016 5:53am Absolute Neutrophils (auto) 7.2 T/MM3 1.8-7.7 02/06/2017 4:2016 5:53am Absolute Lymphocytes (auto) 2.5 T/MM3 1-4.8 02/06/2017 4:2016 5:53am Absolute Monocytes (auto) 0.7 T/MM3 0-0.8 02/06/2017 4:02/06/2017 5:53am Absolute Eosinophils (auto) 0.0 T/MM3 0-0.5 02/06/2017 4:2016 5:53am Absolute Basophils (auto) 0.0 T/MM3 0-0.2 02/06/2017 4:02/06/2017 5:53am Absolute Immature Granulocyte (auto 0.01 T/MM3 0.00-0.03 02/06/2017 4: 02/06/2017 5:53am D-Dimer < 150 NG/ML 0-230 02/04/2017 11:39am 02/04/2017 12:58pm <230 NG/ML D-DU=PRESUMPTIVE NEGATIVE FOR PE OR DVT >230 NG/ML D-DU=ADDITIONAL EVAL FOR PE OR DVT RECOMMENDED Icterus Index < 2 0-7 02/06/2017 4:20am 02/06/2017 4:59am Chemistry Specimen Hemolysis < 15 0-25 02/06/2017 4:20am 02/06/2017 4 :59am 0-25: Specimen Exhibited No Hemolysis. Turbidity < 20 0-20 02/06/2017 4:20am 02/06/2017 4:59am Sodium Level 140 MEQ/L 134-144 02/06/2017 4:20am 02/06/2017 4:59am Potassium Level 3.8 MEQ/L 3.6-5 02/06/2017 4:20am 02/06/2017 4:59am Chloride Level 101 MEQ/L 98-107 02/06/2017 4:2002/06/2017 4:59am Carbon Dioxide Level 31 MEQ/L H 22-30 02/06/2017 4:20am 02/06/2017 4: 59am Anion Gap 8 MEQ/L 5-15 02/06/2017 4:20am 02/06/2017 4:59am Blood Urea Nitrogen 18.0 MG/DL H 7-17 02/06/2017 4:20am 02/06/2017 4: 59am Creatinine 1.1 MG/DL D 0.7-1.2 02/06/2017 4:20am 02/06/2017 5:55am BUN/Creatinine Ratio 16 RATIO 6-26 02/06/2017 4:20am 02/06/2017 4:59am Glomerular Filtration Rate Calc 48 02/06/2017 4:2002/06/2017 4: 59am Glucose Level 122 MG/DL H 65-110 02/06/2017 4:20am 02/06/2017 4:59am Calculated Osmolality 272 MOSM/KG 261-280 02/06/2017 4:2002/06/2017 4:59am Calcium Level 9.0 MG/DL 8.4-10.2 02/06/2017 4:2002/06/2017 4:59am Total Bilirubin 0.70 MG/DL 0.20-1.30 02/04/2017 11:39am 02/04/2017 12: 17pm Alkaline Phosphatase 46 U/L 38-126 02/04/2017 11:39am 02/04/2017 12: 17pm Total Protein 7.3 G/DL 6.3-8.2 02/04/2017 11:39am 02/04/2017 12:17pm Albumin 4.2 G/DL 3.5-5.0 02/04/2017 11:39am 02/04/2017 12:17pm Globulin 3.1 G/DL 2.4-3.6 02/04/2017 11:39am 02/04/2017 12:17pm Albumin/Globulin Ratio 1.4 RATIO 1.1-2.2 02/04/2017 11:39am 02/04/2017 12:17pm Aspartate Amino Transf (AST/SGOT) 33 U/L 14-36 02/04/2017 11:39am 02/04 12:17pm Alanine Aminotransferase (ALT/SGPT) 43 U/L 9-52 02/04/2017 11:39am 12:17pm Troponin I < 0.012 ng/ml 0-0.12 02/04/2017 11:42pm 2017 12:18am Troponin values with a difference of 55% increase from orginal troponin value represent a true biological DELTA value. (%increase Calc=Orginal Troponin value, divided by subsequent Troponin value, multiplied by 100) FL-Blu-Q-Type Natriuretic Peptide 531 PG/ML H 0-175 02/04/2017 11:39am 02/04/2017 12:29pm Rule in cut points: <50 years old=450; 50-75 years old=900; >75 years old=1800; When utilizing ProBNP rule-in cut points, adjustment for impaired renal function is typically not required. Thyroid Stimulating Hormone (TSH) 2.48 MIU/L 0.47-4.68 02/04/2017 11: 39am 02/04/2017 12:48pm Urine Collection Type [place] 02/04/2017 1:00pm 2016 1:07pm Urine Color YELLOW YELLOW 02/04/2017 1:00pm 02/04/2017 1:07pm Urine Turbidity CLEAR CLEAR 02/04/2017 1:00pm 02/04/2017 1:07pm Urine Specific [place] 1.010 L 1.015-1.025 02/04/2017 1:00pm 2016 1:07pm Urine pH 7.5 5.0-8.0 02/04/2017 1:00pm 02/04/2017 1:07pm Urine Leukocyte Esterase 1+ A NEGATIVE 02/04/2017 1:00pm 02/04/2017 1: 07pm Urine Nitrite NEGATIVE NEGATIVE 02/04/2017 1:00pm 02/04/2017 1:07pm Urine Protein NEGATIVE NEGATIVE 02/04/2017 1:00pm 02/04/2017 1:07pm Urine Glucose (UA) NEGATIVE NEGATIVE 02/04/2017 1:00pm 02/04/2017 1: 07pm Urine Ketones NEGATIVE NEGATIVE 02/04/2017 1:00pm 02/04/2017 1:07pm Urine Urobilinogen 0.2 EU/DL NORMAL 02/04/2017 1:00pm 02/04/2017 1: 07pm Urine Bilirubin NEGATIVE NEGATIVE 02/04/2017 1:00pm 02/04/2017 1: 07pm Urine Blood NEGATIVE NEGATIVE 02/04/2017 1:00pm 02/04/2017 1:07pm Urine WBC NONE SEEN /HPF 0-5 02/04/2017 1:00pm 02/04/2017 1:20pm Urine RBC NONE SEEN /HPF 0-3 02/04/2017 1:00pm 02/04/2017 1:20pm Urine Squamous Epithelial Cells 5-10 02/04/2017 1:00pm 02/04/2017 1 :20pm Urine Bacteria NEGATIVE NEGATIVE 02/04/2017 1:00pm 02/04/2017 1:20pm Urine Culture Indicated CULT NOT INDICATED 02/04/2017 1:00pm 2016 1:20pm Name: AURELIA BURKETT Unit #: [id number] : 1940 Sex: F Admit Date: 02/04/17 Loc / Svc: SRG Discharge Date: DIAGNOSTIC IMAGING REPORT Report #: [id number] [facility] KAYLA Shen EXAM: CHEST, PA LATERAL COMPARISON: None available. HISTORY: ITS.REASON: cp . FINDINGS: The heart is upper limits of normal to mildly enlarged. Sternotomy wires are in place. The lungs are hyperinflated with flattening of the diaphragms and increased AP diameter which could be related to chronic emphysematous changes. The pulmonary vascularity appears unremarkable. The lungs are clear. There is no evidence for pleural effusion. There is no evidence for a pneumothorax. Mild endplate sclerosis and spurring is noted. Wedge deformity of an upper thoracic vertebral body is noted which may be old. IMPRESSION: 1. Mild cardiomegaly. 2. Chronic emphysematous changes. LOC[place]CT[place] [facility] [place] No known history of procedures. Encounters Encounter Location Arrival/Admit Date Discharge/Depart Date Attending Provider Discharged Inpatient (obs) [facility] 02/04/17 10:04am 02/06/17 12:10pm ARNALDO BANKS MD
--- NOTE | 2017-02-09 13:39 | NUR ---
CM THIS CM PLACED FOLLOW UP DISCHARGE CALL TO PATIENT. PATIENT REPORTS SHE IS DOING BETTER AND THAT SHE IS TRYING TO WALK SOME EACH DAY TO BUILD UP HER STRENGTH. PT DENIES QUESTIONS OR CONCERNS.
== END 2017-02-06 12:10 | disposition home or self-care (01) ==
LOC: SCU 10:04 → SRG 10:04 → UNDOADMOB 10:04 → SRG 02-05 16:40 → CCU 02-05 16:40 → UNDODISOB 02-06 12:10 → SCU 02-06 12:10 → EDSTATUS 02-08 15:57
PROVIDERS: ATTEND Internal Medicine
DX: I25.700 Atherosclerosis of coronary artery bypass graft(s), unspecified, with unstable angina pectoris (principal); I25.110 Atherosclerotic heart disease of native coronary artery with unstable angina pectoris; I25.82 Chronic total occlusion of coronary artery; G89.29 Other chronic pain; R07.89 Other chest pain; I70.218 Atherosclerosis of native arteries of extremities with intermittent claudication, other extremity; I65.23 Occlusion and stenosis of bilateral carotid arteries; I10 Essential (primary) hypertension; E78.00 Pure hypercholesterolemia, unspecified; R30.0 Dysuria; F32.9 Major depressive disorder, single episode, unspecified; R06.83 Snoring; Z79.82 Long term (current) use of aspirin; Z79.899 Other long term (current) drug therapy; Z86.711 Personal history of pulmonary embolism; Z87.891 Personal history of nicotine dependence
CPT/HCPCS: 36415; 71020; 80048; 80053; 81001; 83880; 84443; 84484; 85025; 85379; 93005; 93306; 93459; 96360; 96361; A9270; C1725; C1760; C1769; C1874; C1893; C9600; G0378; G0379; J0583; J1644; J1650; J2250; J2405; J3010; J3490; J7030; J7050; L3650; Q9967; 93458; 99218